=== PATIENT | male | born 1985 | race Hispanic/Latino ===

== ENCOUNTER 2018-02-27 03:20 | Emergency (ER) | payer OTHER, SELFPAY ==
[2018-02-27] MEDS ORDERED: ASPIRIN 81 MG CHEWABLE TABLET ONE (03:37)
[2018-02-27] MEDS ORDERED: NA CHLORIDE 0.9% 1,000 ML ONE (03:37)
[2018-02-27 03:48] LABS: Absolute Lymphocytes (CBC) 0.8 K/uL (0.7-4.9); Absolute Monocytes 0.3 K/uL (0.1-1.3); Absolute Neutrophil 9.2 K/uL (1.8-8.0); Basophils % 0.2 % (0-1.3); Hematocrit 46.5 % (39.6-49.0); Lymphocytes % 7.7 % (15.3-44.8); MPV 7.8 fL (7.6-11.3); Monocytes % 3.2 % (3.3-12.3); RBC Red Blood Cell Count 4.89 M/uL (4.33-5.43)
[2018-02-27 03:54] LABS: Protime INR 1.08
[2018-02-27 04:04] LABS: Albumin 4.4 g/dL (3.4-5.0); Bilirubin Direct 0.2 mg/dL (0-0.2); Bilirubin Total 0.4 mg/dL (0.2-1.0); CKMB Creatine Kinase MB 1.5 ng/mL (0.3-3.6); Magnesium 2.3 mg/dL (1.8-2.4); Potassium 4.5 mmol/L (3.5-5.1); Protein, Total 8.2 g/dL (6.4-8.2)
[2018-02-27] MEDS ORDERED: METOPROLOL XL 50 MG TAB PO ONE (05:29)
[2018-02-27 05:44] LABS: Barbiturates NEGATIVE (NEGATIVE); Benzodiazepines NEGATIVE (NEGATIVE); Cocaine POSITIVE (NEGATIVE); METHAMPHETAM NEGATIVE (NEGATIVE); Methadone NEGATIVE (NEGATIVE); Opiates NEGATIVE (NEGATIVE); Phencyclidine NEGATIVE (NEGATIVE); THC Cannibis NEGATIVE (NEGATIVE)
[2018-02-27 05:55] LABS: CKMB Creatine Kinase MB 1.5 ng/mL (0.3-3.6)
--- NOTE | 2018-02-27 06:02 | EDPHYS ---
Physician Documentation [facility] Name: Mathew Hartley Age: 33 yrs Sex: Male : 1985 Arrival Date: 02/27/2018 Time: 03:22 Bed 5 Private MD: ED Physician Chris Fraser HPI: 02/27 04:00 This 33 yrs old Male presents to ER via Ambulatory with complaints of Chest aide Pain. 04:00 The patient or guardian reports chest pain that is located primarily in the substernal aide area, anterior chest wall, left. The pain radiates to right arm and left arm. Associated signs and symptoms: The patient has no apparent associated signs or symptoms. The chest pain is described as aching, dull. Modifying factors: The symptoms are alleviated by nothing. the symptoms are aggravated by nothing. Severity of pain: At its worst the pain was mild in the emergency department the pain is unchanged. Historical: - Allergies: 03:28 No Known Allergies; tl2 - Home Meds: 03:28 None [Active]; tl2 - PMHx: 03:28 None; tl2 - PSHx: 03:28 herniated disk removed; tl2 - Immunization history:: Adult Immunizations up to date. - Social history:: Smoking status: Patient/guardian denies using tobacco. - Ebola Screening: : No symptoms or risks identified at this time. - Family history:: not pertinent. ROS: 04:00 Constitutional: Negative for fever, chills, and weight loss, Eyes: Negative for injury, aide pain, redness, and discharge, ENT: Negative for injury, pain, and discharge, Neck: Negative for injury, pain, and swelling, Respiratory: Negative for shortness of breath, cough, wheezing, and pleuritic chest pain, Abdomen/GI: Negative for abdominal pain, nausea, vomiting, diarrhea, and constipation, Back: Negative for injury and pain, : Negative for injury, bleeding, discharge, and swelling, MS/Extremity: Negative for injury and deformity, Skin: Negative for injury, rash, and discoloration, Neuro: Negative for headache, weakness, numbness, tingling, and seizure, Psych: Negative for depression, anxiety, suicide ideation, homicidal ideation, and hallucinations, Allergy/Immunology: Negative for hives, rash, and allergies, Endocrine: Negative for neck swelling, polydipsia, polyuria, polyphagia, and marked weight changes, Hematologic/Lymphatic: Negative for swollen nodes, abnormal bleeding, and unusual bruising. 04:00 Cardiovascular: Positive for chest pain, of the anterior aspect of left upper chest. Exam: 04:00 Constitutional: This is a well developed, well nourished patient who is awake, alert, aide and in no acute distress. Head/Face: Normocephalic, atraumatic. Eyes: Pupils equal round and reactive to light, extra-ocular motions intact. Lids and lashes normal. Conjunctiva and sclera are non-icteric and not injected. Cornea within normal limits. Periorbital areas with no swelling, redness, or edema. ENT: Nares patent. No nasal discharge, no septal abnormalities noted. Tympanic membranes are normal and external auditory canals are clear. Oropharynx with no redness, swelling, or masses, exudates, or evidence of obstruction, uvula midline. Mucous membranes moist. Neck: Trachea midline, no thyromegaly or masses palpated, and no cervical lymphadenopathy. Supple, full range of motion without nuchal rigidity, or vertebral point tenderness. No Meningismus. Cardiovascular: Regular rate and rhythm with a normal S1 and S2. No gallops, murmurs, or rubs. Normal PMI, no JVD. No pulse deficits. Respiratory: Lungs have equal breath sounds bilaterally, clear to auscultation and percussion. No rales, rhonchi or wheezes noted. No increased work of breathing, no retractions or nasal flaring. Abdomen/GI: Soft, non-tender, with normal bowel sounds. No distension or tympany. No guarding or rebound. No evidence of tenderness throughout. Back: No spinal tenderness. No costovertebral tenderness. Full range of motion. Male : Normal genitalia with no discharge or lesions. Skin: Warm, dry with normal turgor. Normal color with no rashes, no lesions, and no evidence of cellulitis. MS/ Extremity: Pulses equal, no cyanosis. Neurovascular intact. Full, normal range of motion. Neuro: Awake and alert, GCS 15, oriented to person, place, time, and situation. Cranial nerves II-XII grossly intact. Motor strength 5/5 in all extremities. Sensory grossly intact. Cerebellar exam normal. Normal gait. Psych: Awake, alert, with orientation to person, place and time. Behavior, mood, and affect are within normal limits. 04:00 Chest/axilla: Inspection: normal, Palpation: tenderness, that is mild, of the left clavicle and anterior aspect of left upper chest, Axilla: are normal, Lymph nodes: lymphadenopathy is not appreciated. 04:07 Musculoskeletal/extremity: DVT Exam: No signs of deep vein thrombosis. no pain, no aide swelling, no tenderness, negative Homans' sign noted on exam, no appreciated bluish discoloration, no erythema, no increased warmth. 05:25 Musculoskeletal/extremity: Exam is negative for Extremities: all appear grossly normal, aide with no appreciated pain with palpation, ROM: intact in all extremities, full active range of motion, full passive range of motion, Circulation is intact in all extremities. Pulses: Perfusion: the patient is Sensation intact. Compartment Syndrome exam of affected extremity: is normal. Weight bearing: can bear weight with assistance only. Vital Signs: 03:28 BP 155 / 94; Pulse 118; Resp 22; Temp 97.9(O); Pulse Ox 100% on R/A; Weight 83.91 kg; tl2 Height 6 ft. 1 in. (185.42 cm); Pain 6/10; 04:45 BP 143 / 87; Pulse 87; Resp 18; Pulse Ox 99% on R/A; tl2 05:58 BP 138 / 78; Pulse 91; Resp 18; Pulse Ox 99% on R/A; tl2 06:12 BP 132 / 77; Pulse 82; Resp 16; Temp 98; Pulse Ox 99% on R/A; Pain 0/10; tl1 03:28 Body Mass Index 24.41 (83.91 kg, 185.42 cm) tl2 MDM: 03:28 Patient medically screened. [facility] 04:00 Data reviewed: vital signs, nurses notes, lab test result(s), EKG, radiologic studies, [facility] plain films. 02/27 03:27 Order name: Basic Metabolic Panel; Complete Time: 04:14 [facility] 02/27 03:27 Order name: CBC with Diff; Complete Time: 04:14 [facility] 02/27 03:27 Order name: Ckmb; Complete Time: 04:14 [facility] 02/27 03:27 Order name: CPK; Complete Time: 04:14 [facility] 02/27 03:27 Order name: LFT's; Complete Time: 04:14 [facility] 02/27 03:27 Order name: Magnesium; Complete Time: 04:14 aide 02/27 03:27 Order name: NT PRO-BNP; Complete Time: 04:14 aide 02/27 03:27 Order name: PT-INR; Complete Time: 04:14 aide 02/27 03:27 Order name: Ptt, Activated; Complete Time: 04:14 aide 02/27 03:27 Order name: Troponin (emerg Dept Use Only); Complete Time: 04:14 aide 02/27 03:27 Order name: Lipase; Complete Time: 04:14 aide 02/27 03:27 Order name: UDS; Complete Time: 06:01 aide 02/27 03:38 Order name: TSH; Complete Time: 05:20 aide 02/27 03:59 Order name: D-Dimer; Complete Time: 05:20 aide 02/27 03:27 Order name: XRAY Chest (1 view) 02/27 03:27 Order name: EKG; Complete Time: 03:27 [facility] 02/27 03:27 Order name: Cardiac monitoring; Complete Time: 03:31 aide 02/27 03:27 Order name: EKG - Nurse/Tech; Complete Time: 03:31 aide 02/27 03:27 Order name: IV Saline Lock; Complete Time: 03:32 [facility] 02/27 03:27 Order name: Labs collected and sent; Complete Time: 03:32 aide 02/27 03:27 Order name: O2 Per Protocol; Complete Time: 03:32 aide 02/27 03:27 Order name: O2 Sat Monitoring; Complete Time: 03:32 [facility] 02/27 03:27 Order name: Urine Dipstick-Ancillary (obtain specimen); Complete Time: 05:04 aide 02/27 05:22 Order name: Ckmb; Complete Time: 06:01 aide 02/27 05:22 Order name: Creatine Phosphokinase; Complete Time: 06:01 aide 02/27 05:22 Order name: Troponin (emerg Dept Use Only); Complete Time: 06:01 aide 02/27 05:22 Order name: Repeat Cardiac Enzymes at: 525am; Complete Time: 05:26 aide Administered Medications: 03:38 Drug: NS 0.9% 1000 ml Route: IV; Rate: 125 ml/hr; Site: left antecubital; tl2 06:14 Follow up: IV Status: Completed infusion tl1 03:38 Drug: Aspirin Chewable Tablet 324 mg Route: PO; tl2 05:14 Follow up: Response: No adverse reaction; No change in condition tl1 04:02 Drug: NS 0.9% 1000 ml Route: IV; Rate: 1 bolus; Site: left antecubital; bb 05:14 Follow up: IV Status: Completed infusion tl1 05:27 Drug: ToPROL XL (metoprolol SUCCINATE XL) 50 mg Route: PO; tl1 06:11 Follow up: Response: No adverse reaction; Marked relief of symptoms tl1 Disposition: 02/27/18 06:01 Discharged to Home. Impression: Other chest pain - wall, Anxiety disorder, unspecified, Cocaine abuse. - Condition is Stable. - Discharge Instructions: Panic Attacks, Chest Wall Pain, Stimulant Use Disorder-Cocaine, Panic Attacks, [id number]-ct-[id number], Aspirin and Your Heart. - Prescriptions for Motrin IB 200 mg Oral Tablet - take 2 tablet by ORAL route every 6 hours As needed as needed with food; 20 tablet. - Medication Reconciliation Form, Thank You Letter, Antibiotic Education, Prescription Opioid Use form. - Follow up: Private Physician; When: 2 - 3 days; Reason: Recheck today's complaints, Continuance of care, Re-evaluation by your physician. Follow up: Vernon Tanner; When: 2 - 3 days; Reason: Recheck today's complaints, Re-evaluation by your physician. - Problem is new. - Symptoms have improved. Signatures: Dispatcher [employer] EDChris Henning MD MD cha Ballard, Brenda RN RN Enma Nunez RN RN tl1 Mikala Hampton RN RN tl2 Corrections: (The following items were deleted from the chart) 06:19 06:01 02/27/2018 06:01 Discharged to Home. Impression: Other chest pain - wall; Anxiety tl1 disorder, unspecified; Cocaine abuse. Condition is Stable. Discharge Instructions: Panic Attacks, Chest Wall Pain, Panic Attacks, Uqqn-[id number], Aspirin and Your Heart. Prescriptions for Toprol XL 25 mg Oral Tablet - take 1 tablet by ORAL route once daily; 20 tablet, Motrin IB 200 mg Oral Tablet - take 2 tablet by ORAL route every 6 hours As needed as needed with food; 20 tablet. and Forms are Medication Reconciliation Form, Thank You Letter, Antibiotic Education, Prescription Opioid Use. Follow up: Private Physician; When: 2 - 3 days; Reason: Recheck today's complaints, Continuance of care, Re-evaluation by your physician. Follow up: Vernon Tanner; When: 2 - 3 days; Reason: Recheck today's complaints, Re-evaluation by your physician. Problem is new. Symptoms have improved. aide
--- NOTE | 2018-02-27 06:02 | ER ---
Nurse's Notes [facility] Name: Mathew Hartley Age: 33 yrs Sex: Male : 1985 Arrival Date: 02/27/2018 Time: 03:22 Bed 5 Private MD: Diagnosis: Other chest pain-wall;Anxiety disorder, unspecified;Cocaine abuse Presentation: 02/27 03:27 Presenting complaint: Patient states: Woke up about 1 hour ago with left sided chest tl2 pain, states arms sometimes feel numb and had a little nausea. Denies shortness of breath or sweating. Pain does not radiate. Transition of care: patient was not received from another setting of care. Onset of symptoms was February 27, 2018 at 02:30. Risk Assessment: Do you want to hurt yourself or someone else? Patient reports no desire to harm self or others. Initial Sepsis Screen: Does the patient meet any 2 criteria? No. Patient's initial sepsis screen is negative. Does the patient have a suspected source of infection? No. Patient's initial sepsis screen is negative. Care prior to arrival: None. 03:27 Method Of Arrival: Ambulatory tl2 03:27 Acuity: JASWANT 3 tl2 Triage Assessment: 03:28 General: Appears in no apparent distress. uncomfortable, Behavior is cooperative, tl2 appropriate for age, anxious. Pain: Complains of pain in chest Pain does not radiate. Pain currently is 6 out of 10 on a pain scale. Quality of pain is described as pressure, Pain began 1 hour ago. Neuro: Level of Consciousness is awake, alert, obeys commands, Oriented to person, place, time, situation. Cardiovascular: Reports nausea, Denies diaphoresis, shortness of breath, Patient's skin is warm and dry. Rhythm is sinus tachycardia Chest pain is described as mild, quality is pressure, is located in left anterior began 1 hour prior to arrival. Respiratory: Airway is patent Respiratory effort is even, unlabored, Respiratory pattern is regular, symmetrical. GI: Reports nausea. : No signs and/or symptoms were reported regarding the genitourinary system. Derm: Skin is pink, warm \T\ dry. Historical: - Allergies: 03:28 No Known Allergies; tl2 - Home Meds: 03:28 None [Active]; tl2 - PMHx: 03:28 None; tl2 - PSHx: 03:28 herniated disk removed; tl2 - Immunization history:: Adult Immunizations up to date. - Social history:: Smoking status: Patient/guardian denies using tobacco. - Ebola Screening: : No symptoms or risks identified at this time. - Family history:: not pertinent. Screenin:31 Abuse screen: Denies threats or abuse. Nutritional screening: No deficits noted. tl2 Tuberculosis screening: No symptoms or risk factors identified. Fall Risk None identified. Assessment: 03:28 General: see triage assessment. tl2 04:51 Reassessment: Patient appears in no apparent distress at this time. Patient and/or tl2 family updated on plan of care and expected duration. Pain level reassessed. Patient is alert, oriented x 3, equal unlabored respirations, skin warm/dry/pink. 05:59 Reassessment: Patient appears in no apparent distress at this time. Patient and/or tl2 family updated on plan of care and expected duration. Pain level reassessed. Patient is alert, oriented x 3, equal unlabored respirations, skin warm/dry/pink. Patient states feeling better. 06:12 Reassessment: Patient and/or family updated on plan of care and expected duration. Pain tl1 level reassessed. Patient is alert, oriented x 3, equal unlabored respirations, skin warm/dry/pink. Patient denies pain at this time. Patient states feeling better. Patient states symptoms have improved. Pain: Denies pain. Vital Signs: 03:28 BP 155 / 94; Pulse 118; Resp 22; Temp 97.9(O); Pulse Ox 100% on R/A; Weight 83.91 kg; tl2 Height 6 ft. 1 in. (185.42 cm); Pain 6/10; 04:45 BP 143 / 87; Pulse 87; Resp 18; Pulse Ox 99% on R/A; tl2 05:58 BP 138 / 78; Pulse 91; Resp 18; Pulse Ox 99% on R/A; tl2 06:12 BP 132 / 77; Pulse 82; Resp 16; Temp 98; Pulse Ox 99% on R/A; Pain 0/10; tl1 03:28 Body Mass Index 24.41 (83.91 kg, 185.42 cm) tl2 ED Course: 03:23 Patient arrived in ED. bb 03:23 Chris Fraser MD is Attending Physician. aide 03:27 Mikala Hampton RN is Primary Nurse. tl2 03:28 Triage completed. tl2 03:28 Arm band placed on right wrist. tl2 03:31 Patient has correct armband on for positive identification. Placed in gown. Bed in low tl2 position. Call light in reach. Side rails up X 1. Adult w/ patient. control inspector on. Pulse ox on. NIBP on. 03:31 Patient maintains SpO2 saturation greater than 95% on room air. tl2 03:38 Inserted saline lock: 20 gauge in left antecubital area, using aseptic technique. Blood tl2 collected. placed by AMISH Diaz. 04:56 XRAY Chest (1 view) In Process Unspecified. EDMS 05:03 Urine collected: clean catch specimen, clear. cb2 06:01 Vernon Tanner MD is Referral Physician. aide 06:13 No provider procedures requiring assistance completed. IV discontinued, intact, tl1 bleeding controlled, No redness/swelling at site. Pressure dressing applied. Administered Medications: 03:38 Drug: NS 0.9% 1000 ml Route: IV; Rate: 125 ml/hr; Site: left antecubital; tl2 06:14 Follow up: IV Status: Completed infusion tl1 03:38 Drug: Aspirin Chewable Tablet 324 mg Route: PO; tl2 05:14 Follow up: Response: No adverse reaction; No change in condition tl1 04:02 Drug: NS 0.9% 1000 ml Route: IV; Rate: 1 bolus; Site: left antecubital; bb 05:14 Follow up: IV Status: Completed infusion tl1 05:27 Drug: ToPROL XL (metoprolol SUCCINATE XL) 50 mg Route: PO; tl1 06:11 Follow up: Response: No adverse reaction; Marked relief of symptoms tl1 Outcome: 06:01 Discharge ordered by . aide 06:13 Discharged to home ambulatory, with family. tl1 06:13 Condition: improved 06:13 Discharge instructions given to patient, family, Instructed on discharge instructions, follow up and referral plans. medication usage, Demonstrated understanding of instructions, follow-up care, medications, Prescriptions given X 1. 06:19 Patient left the ED. tl1 Signatures: Dispatcher [employer] EDDC Chris Fraser MD MD cha Ballard, Brenda, RN RN Tom Nunezya, RN RN tl1 Mikala Hampton, RN RN tl2 Nitish Valenzuela cb2
--- NOTE | 2018-02-27 06:45 | EKG ---
Test Date: 2018-02-27 Test Time: 03:26:36 [employer] Attendant: LIZETH MEASUREMENT RESULTS: Intervals: Rate: 120 ME: 138 QRSD: 98 QT: 328 QTc: 463 [place]: P: 80 ME: 138 QRS: 82 T: 62 INTERPRETIVE STATEMENTS: Sinus tachycardia Biatrial enlargement Possible Right ventricular hypertrophy Left ventricular hypertrophy Abnormal ECG No previous ECG available for comparison Electronically Signed On 02-27-18 06:45:00 CDT by Dex Orona
--- NOTE | 2018-02-27 09:28 | RAD REPORT ---
EXAM DESCRIPTION: Stanislaw Single View02/27/2018 8:47 am CLINICAL HISTORY: Chest pain COMPARISON: none FINDINGS: The lungs appear clear of acute infiltrate. The heart is normal size IMPRESSION: No acute abnormalities displayed
== END 2018-02-27 06:19 | disposition home or self-care (01) ==
LOC: ER 03:20
DX: F41.9 Anxiety disorder, unspecified (principal); F14.10 Cocaine abuse, uncomplicated
CPT/HCPCS: 36415; 71045; 80048; 80076; 80307; 82550; 82553; 83690; 83735; 83880; 84443; 84484; 85025; 85379; 85610; 85730; 93005; 96360; 96361; 99285; J7030

== ENCOUNTER 2022-07-17 13:25 | Inpatient (IN) | payer SELFPAY ==
--- OUTSIDE RECORDS SUMMARY | 2022-07-17 13:29 | XMS REPORT | Continuity of Care Document ---
:1985 Author Organization [facility] t Address [address] Harry [address] [place] [id number] Care Team Providers Name Role Phone CHELA LYLES Attending Clinician Unavailable LAB90 Attending Clinician Unavailable Jaime FANG, Chela Cooper Attending Clinician [phone] Payers Payer Name Policy Type Policy Number Effective Date Expiration Date [facility] 2 [id number] 2022 00:00:00 Problems This patient has no known problems. Allergies, Adverse Reactions, Alerts This patient has no known allergies or adverse reactions. Medications This patient has no known medications. Procedures This patient has no known procedures. Encounters Start End Encounter Admission Attending Care Care Encounter Source Date/Time Date/Time Type Type Clinicians Facility Department ID 2022-02-22 2022-02-22 Outpatient HECTOR LYLES [id number] [place] 13:30:00 13:30:00 CHELA Mendezol d 2022-02-21 2022-02-21 Outpatient LAB90 HECTOR YOUNG [id number] [place] 08:10:00 08:10:00 Seybol d 2022-01-25 2022-01-25 Outpatient LAB90 HECTOR YOUNG [id number] [place] 14:45:00 14:45:00 Seybol d 2022-01-25 2022-01-25 Office Jaime Catalino [id number] [place] 14:00:00 14:30:00 Visit Chela Roe [id number] Se franci Cooper [id number] Results This patient has no known results.
[2022-07-17] MEDS ORDERED: ONDANSETRON 4 MG/2 ML VIAL ONE (14:00)
[2022-07-17] MEDS ORDERED: MORPHINE 4 MG/ML SYR ONE (14:00)
[2022-07-17] MEDS ORDERED: FAMOTIDINE 20 MG/2 ML VIAL IV ONE (14:01)
[2022-07-17] MEDS ORDERED: NA CHLORIDE 0.9% 1,000 ML ONE ×2 (14:01→19:13)
[2022-07-17 14:22] LABS: Absolute Lymphocytes (CBC) 1.3 K/uL (0.7-4.9); Hematocrit 46.1 % (39.6-49.0); Lymphocytes % 7.1 % (15.3-44.8); MCV 92.1 fL (80-100); MPV 7.8 fL (7.6-11.3); RBC Red Blood Cell Count 5.01 M/uL (4.33-5.43)
[2022-07-17 14:39] LABS: Albumin 4.2 g/dL (3.4-5.0); Bilirubin Total 1.1 mg/dL (0.2-1.0); Potassium 3.3 mmol/L (3.5-5.1); Protein, Total 8.3 g/dL (6.4-8.2)
[2022-07-17] MEDS ORDERED: PIPERACIL/TAZO 3.375 GM VIAL IV ONE (14:54)
[2022-07-17] MEDS ORDERED: NA CHLORIDE 0.9% 100 ML IV ONE (14:54)
--- NOTE | 2022-07-17 15:04 | RAD REPORT ---
EXAM DESCRIPTION: CT - Abdomen Pelvis W Contrast - 07/17/2022 2:51 pm CLINICAL HISTORY: Abdominal pain COMPARISON: none. TECHNIQUE: Computed axial tomography of the abdomen pelvis was obtained. 100 cc Isovue-300 was admin istered intravenously. Oral contrast was not requested which limits evaluation of bowel and appendix All CT scans are performed using dose optimization technique as appropriate and may include automated exposure control or mA/KV adjustment according to patient size. FINDINGS: Fatty liver Spleen, pancreas, adrenal and kidneys appear unremarkable. There is no evidence of diverticulitis. The appendix is dilated and fluid-filled. It contains several stones. Stranding within the adjacent f at with ill-defined fluid. No abscess seen. No free air. The appendix extends laterally from the cecu m. The tip abuts the right psoas muscle. IMPRESSION: Suppurative appendicitis
--- NOTE | 2022-07-17 15:24 | ER ---
Nurse's Notes [facility] Name: Mathew Hartley Age: 37 yrs Sex: Male : 1985 Arrival Date: 07/17/2022 Time: 13:28 Bed 11 Private MD: Diagnosis: Acute appendicitis with localized peritonitis Presentation: 07/17 13:38 Chief complaint: Patient states: RLQ pain that began yesterday, pt states "I thought it aa5 was constipation but I still haven't had a bowel movement after laxatives and the pain hasn't gone away". Pt reports nausea/vomiting. Coronavirus screen: nausea. Ebola Screen: Patient denies travel to an Ebola-affected area in the 21 days before illness onset. Initial Sepsis Screen: Does the patient meet any 2 criteria? HR > 90 bpm. Does the patient have a suspected source of infection? No. Patient's initial sepsis screen is negative. Risk Assessment: Do you want to hurt yourself or someone else? Patient reports no desire to harm self or others. Onset of symptoms was June 2022. 13:38 Method Of Arrival: Ambulatory aa5 13:38 Acuity: JASWANT 3 aa5 Historical: - Allergies: 13:38 No Known Allergies; aa5 - PMHx: 13:38 None; aa5 - PSHx: 13:38 cervical spine discectomy; aa5 - Immunization history:: Adult Immunizations unknown. - Social history:: Smoking status: Patient denies any tobacco usage or history of. Screenin:17 [facility] ED Fall Risk Assessment (Adult) History of falling in the last 3 months, iw including since admission No falls in past 3 months (0 pts). Abuse screen: Denies threats or abuse. Denies injuries from another. Nutritional screening: No deficits noted. Tuberculosis screening: No symptoms or risk factors identified. Assessment: 14:07 Reassessment: Patient is alert, oriented x 3, equal unlabored respirations, skin aa5 warm/dry/pink. Awaiting CT scan . 15:17 Reassessment: Patient appears in no apparent distress at this time. Patient is alert, iw oriented x 3, equal unlabored respirations, skin warm/dry/pink. pt states pain is back, morphine helped for a little while but now is back. Vital Signs: 13:38 BP 125 / 75; Pulse 107; Resp 20 S; Temp 99.3(O); Pulse Ox 99% on R/A; Weight 90.72 kg aa5 (R); Height 6 ft. 1 in. (185.42 cm) (R); 15:16 BP 152 / 87; Pulse 89; Resp 16; Pulse Ox 100% on R/A; iw 13:38 Body Mass Index 26.39 (90.72 kg, 185.42 cm) aa5 ED Course: 13:28 Patient arrived in ED. rg4 13:38 Arm band placed on. aa5 13:40 Triage completed. aa5 13:42 Rhina Gibson FNP-C is PHCP. snw 13:42 David Francis MD is Attending Physician. snw 14:09 CBC with Diff Sent. rs5 14:09 CMP Sent. rs5 14:09 Lipase Sent. rs5 14:31 Ana Coffey, AMISH is Primary Nurse. iw 14:53 CT Abd/Pelvis - IV Contrast Only In Process Unspecified. EDMS 15:17 Patient has correct armband on for positive identification. iw 15:23 Ge Cherry MD is Hospitalizing Provider. snw 15:58 SARS RAPID Sent. iw Administered Medications: 14:07 Drug: NS 0.9% 1000 ml Route: IV; Rate: 1 bolus; Site: left forearm; aa5 14:07 Drug: Pepcid (famotidine) 20 mg Route: IVP; Site: left forearm; aa5 14:07 Drug: Zofran (Ondansetron) 4 mg Route: IVP; Site: left forearm; aa5 14:07 Drug: morphine 4 mg Route: IVP; Infused Over: 4 mins; Site: left forearm; aa5 15:15 Drug: Zosyn (piperacillin-tazobactam) 3.375 grams Route: IVPB; Infused Over: 60 mins; iw Site: left antecubital; 15:58 Follow up: IV Status: Completed infusion iw 15:49 Drug: Dilaudid (HYDROmorphone) 1 mg Route: IVP; Site: left forearm; iw Outcome: 15:23 Decision to Hospitalize by Provider. snw 16:37 Patient left the ED. iw Signatures: Dispatcher [employer] EDMS Rhina Gibson FNP-C [employer] Ana Coffey, RN RN iw Anastasiia Turcios, RN RN aa5 Renetta Philip rg4 Bishnu Reynolds rs5
--- NOTE | 2022-07-17 15:24 | EDPHYS ---
Physician Documentation [facility] Name: Mathew Hartley Age: 37 yrs Sex: Male : 1985 Arrival Date: 07/17/2022 Time: 13:28 Bed 11 Private MD: ED Physician David Francis HPI: 07/17 14:20 This 37 yrs old Male presents to ER via Ambulatory with complaints of snw Abdominal Pain, Vomiting, Constipation. 14:20 The patient presents with abdominal pain pt had upper abdominal pain and unease all day snw yesterday, thought it was constipation. Took Dulcolax and tums without relief. Pt began vomiting and vomited all night. Today with severe RLQ pain. Onset: The symptoms/episode began/occurred acutely. Associated signs and symptoms: Pertinent positives: nausea and vomiting. The symptoms are described as steady, vague. Severity of pain: At its worst the pain was moderate severe in the emergency department the pain is unchanged. The patient has not experienced similar symptoms in the past. The patient has not recently seen a physician. Historical: - Allergies: 13:38 No Known Allergies; aa5 - PMHx: 13:38 None; aa5 - PSHx: 13:38 cervical spine discectomy; aa5 - Immunization history:: Adult Immunizations unknown. - Social history:: Smoking status: Patient denies any tobacco usage or history of. ROS: 14:20 Eyes: Negative for injury, pain, redness, and discharge, ENT: Negative for injury, snw pain, and discharge, Neck: Negative for injury, pain, and swelling, Cardiovascular: Negative for chest pain, palpitations, and edema, Respiratory: Negative for shortness of breath, cough, wheezing, and pleuritic chest pain, Back: Negative for injury and pain, : Negative for injury, bleeding, discharge, and swelling, MS/Extremity: Negative for injury and deformity, Skin: Negative for injury, rash, and discoloration, Neuro: Negative for headache, weakness, numbness, tingling, and seizure. 14:20 Constitutional: Positive for body aches. 14:20 Abdomen/GI: Positive for abdominal pain, nausea and vomiting, constipation, of the right lower quadrant. Exam: 14:19 Constitutional: This is a well developed, well nourished patient who is awake, alert, snw and in no acute distress. Head/Face: Normocephalic, atraumatic. Eyes: Pupils equal round and reactive to light, extra-ocular motions intact. Lids and lashes normal. Conjunctiva and sclera are non-icteric and not injected. Cornea within normal limits. Periorbital areas with no swelling, redness, or edema. ENT: Nares patent. No nasal discharge, no septal abnormalities noted. Tympanic membranes are normal and external auditory canals are clear. Oropharynx with no redness, swelling, or masses, exudates, or evidence of obstruction, uvula midline. Mucous membranes moist. Neck: Trachea midline, no thyromegaly or masses palpated, and no cervical lymphadenopathy. Supple, full range of motion without nuchal rigidity, or vertebral point tenderness. No Meningismus. Chest/axilla: Normal chest wall appearance and motion. Nontender with no deformity. No lesions are appreciated. Cardiovascular: Tachycardic rate and rhythm with a normal S1 and S2. No gallops, murmurs, or rubs. Normal PMI, no JVD. No pulse deficits. Respiratory: Lungs have equal breath sounds bilaterally, clear to auscultation and percussion. No rales, rhonchi or wheezes noted. No increased work of breathing, no retractions or nasal flaring. Back: No spinal tenderness. No costovertebral tenderness. Full range of motion. 14:19 Skin: Warm, dry with normal turgor. Normal color with no rashes, no lesions, and no evidence of cellulitis. MS/ Extremity: Pulses equal, no cyanosis. Neurovascular intact. Full, normal range of motion. Neuro: Awake and alert, GCS 15, oriented to person, place, time, and situation. Cranial nerves II-XII grossly intact. Motor strength 5/5 in all extremities. Sensory grossly intact. Cerebellar exam normal. Normal gait. Psych: Awake, alert, with orientation to person, place and time. Behavior, mood, and affect are within normal limits. 14:19 Abdomen/GI: Inspection: abdomen appears normal, Bowel sounds: diminished, Palpation: severe abdominal tenderness, in the right lower quadrant, Indicators: McBurney's point is tender, Rovsing's sign is positive, Obturator sign is positive, Psoas sign is positive. Vital Signs: 13:38 BP 125 / 75; Pulse 107; Resp 20 S; Temp 99.3(O); Pulse Ox 99% on R/A; Weight 90.72 kg aa5 (R); Height 6 ft. 1 in. (185.42 cm) (R); 15:16 BP 152 / 87; Pulse 89; Resp 16; Pulse Ox 100% on R/A; iw 13:38 Body Mass Index 26.39 (90.72 kg, 185.42 cm) aa5 MDM: 13:44 Patient medically screened. snw 15:23 Data reviewed: vital signs, nurses notes. Data interpreted: Pulse oximetry: on room air snw is 100 %. Interpretation: normal. Counseling: I had a detailed discussion with the patient and/or guardian regarding: the historical points, exam findings, and any diagnostic results supporting the discharge/admit diagnosis, the presence of at least one elevated blood pressure reading (>120/80) during this emergency department visit, lab results, radiology results, the need for further work-up and treatment in the hospital. Physician consultation: Ge Cherry MD was called at 15:24, regarding admission, consult, need to evaluate the patient as soon as possible. 07/17 13:44 Order name: CBC with Diff; Complete Time: 14:29 snw 07/17 13:44 Order name: CMP; Complete Time: 14:42 snw 07/17 13:44 Order name: Lipase; Complete Time: 14:42 snw 07/17 13:44 Order name: CT Abd/Pelvis - IV Contrast Only; Complete Time: 15:16 snw 07/17 15:21 Order name: SARS RAPID; Complete Time: 16:14 iw 07/17 13:44 Order name: IV Saline Lock; Complete Time: 14:07 snw 07/17 13:44 Order name: Labs collected and sent; Complete Time: 14:07 snw 07/17 15:24 Order name: NPO; Complete Time: 15:50 snw Administered Medications: 14:07 Drug: NS 0.9% 1000 ml Route: IV; Rate: 1 bolus; Site: left forearm; aa5 14:07 Drug: Pepcid (famotidine) 20 mg Route: IVP; Site: left forearm; aa5 14:07 Drug: Zofran (Ondansetron) 4 mg Route: IVP; Site: left forearm; aa5 14:07 Drug: morphine 4 mg Route: IVP; Infused Over: 4 mins; Site: left forearm; aa5 15:15 Drug: Zosyn (piperacillin-tazobactam) 3.375 grams Route: IVPB; Infused Over: 60 mins; iw Site: left antecubital; 15:58 Follow up: IV Status: Completed infusion iw 15:49 Drug: Dilaudid (HYDROmorphone) 1 mg Route: IVP; Site: left forearm; iw Disposition: 07/18 12:31 Co-signature as Attending Physician, David Francis MD I agree with the assessment and rt plan of care. Disposition Summary: 07/17/22 15:23 Hospitalization Ordered Hospitalization Status: Inpatient Admission snw Provider: Ge Cherry Location: Telemetry/MedSurg (Inpatient) snw Condition: Stable snw Problem: new snw Symptoms: have worsened snw Bed/Room Type: Standard snw Room Assignment: snw Diagnosis - Acute appendicitis with localized peritonitis snw Forms: - Medication Reconciliation Form snw - SBAR form snw Signatures: Dispatcher [employer] EDRhina May, CARTON MAKER-C CARTON MAKER-Csnw Ana Coffey RN RN iw Anastasiia Turcios RN RN aa5 David Francis MD MD rt
[2022-07-17] MEDS ORDERED: HYDROMORPHONE HCL 1 MG/ML INJ ONE (15:29)
[2022-07-17 16:12] LABS: SARS-CoV-2 Antigen Rapid Res Negative (Negative)
[2022-07-17] MEDS: Ringers Lactate 1,000 ML IV ONE (16:57)
[2022-07-17] MEDS: BUPIVACAINE 0.5% PF 10 ML VIAL ONE ×2 (16:59→17:40)
[2022-07-17] MEDS ORDERED: SUCCINYLCHOLINE 20 MG/ML (10 ML) IV ONE (17:04)
[2022-07-17] MEDS ORDERED: MIDAZOLAM HCL 2 MG/2 ML INJ ONE (17:06)
[2022-07-17] MEDS ORDERED: ROCURONIUM 50 MG/5 ML VIAL IV ONE (17:06)
[2022-07-17] MEDS ORDERED: FENTANYL CITR 100 MCG/2 ML ONE ×2 (17:06→18:03)
[2022-07-17] MEDS ORDERED: propofoL 200 MG/20 ML VIAL IV ONE (17:06)
[2022-07-17] MEDS ORDERED: SODIUM CHLORIDE 0.9% 10ML INJ IV PRN (17:24)
--- NOTE | 2022-07-17 17:24 | P.BOP ---
Preoperative diagnosis: acute suppurative appendicitis, peritonitis Postoperative diagnosis: same, perforated appendicitis, intrabdominal adhesions Primary procedure: Laparoscopic appendectomy Secondary procedure: Laparoscopic lysis of adhesions Estimated blood loss: 30cc Specimen: manjeet Findings: perforated appendicitis with localized abscess Anesthesia: General Complications: None Drain(s): CRISTIAN drain Transferred to: Recovery Room Condition: Good
[2022-07-17] MEDS: NA CHLORIDE 0.9% 1,000 ML IV SCH (18:00)
[2022-07-17] MEDS: CEFOXITIN 1 GM in NA CHLORIDE 0.9% 50 ML IVPB SCH (18:00)
[2022-07-17] MEDS ORDERED: CEFOXITIN SODIUM 1 GM/VIAL ONE (18:09)
[2022-07-17] MEDS ORDERED: NA CHLORIDE 0.9% 50 ML IV ONE (18:12)
[2022-07-17] MEDS ORDERED: GLYCOPYRROLATE 0.2 MG/ML SYR ONE (18:17)
[2022-07-17] MEDS ORDERED: NEOSTIGMINE 1 MG/ML -5 ML ONE (18:33)
[2022-07-17] MEDS ORDERED: MEPERIDINE HCL 25 MG/ML SYR ONE (18:43)
[2022-07-17] MEDS ORDERED: KETOROLAC 30 MG/ML INJ ONE (19:12)
[2022-07-17] MEDS: HYDROMORPHONE HCL 1 MG/ML INJ ONE ×2 (19:12→19:20)
[2022-07-17] MEDS: METRONIDAZOLE 500mg IVPB 500 MG/100 ML BAG IV SCH (20:00)
[2022-07-17 20:09] VITALS: BMI 25.3
--- NOTE | 2022-07-17 21:53 | HP ---
Date of Admission: 07/17/2022 Diagnosis: Acute appendicitis. History Of Present Illness: This is a case of a 37-year-old patient having abdominal pain for the la st 2 days associated with vomiting and nausea. He was taking some Dulcolax, even taking some Tums, b ut today the pain got worse to the point that he came to the ER and when workup was done, he was foun d to have acute suppurative appendicitis based on CAT scan. Surgical consultation was obtained. Allergies: NONE. Past Medical History: None. Past Surgical History: Surgeries include cervical spine diskectomy. Social History: He does not smoke. He does not drink alcohol. Family History: Noncontributory. Review of Systems: Nausea, vomiting, and abdominal pain. Denies any dysuria, hematuria, hematochezia, or melena. Denie s any recent traveling out of the country. Denies any family member sick at home. Physical Examination: General: Patient is awake and alert. Eyes: Pupils are equal and reactive. Anicteric. Neck: Supple. Chest: Clear. Abdomen: Right lower quadrant tenderness with Rovsing sign and psoas signs positive with guarding an d rebound. Rectal: Examination deferred. Extremities: Good capillary refill. Neuro: Cranial nerves 2 through 12 grossly within normal limits. Laboratory Data: Blood work shows WBC count of 18.9 with hemoglobin of 16.2 and platelets of 300. P otassium 3.3 and creatinine is 1.17. CAT scan of the abdomen and pelvis described by Dr. Naldo david ws suppurative appendicitis. Assessment: This is a 37-year-old patient who comes to us with acute appendicitis. The benefits, al ternatives, and risks of emergent laparoscopic with possible open appendectomy were fully explained, which include, but are not limited to infection, bleeding, damage to adjacent structures, anesthesia complication, abscess, myocardial infarction, and even . He also understands this may not relie ve any symptoms and he might need more than one surgical intervention. He understood. He signed a c onsent. The OR was emergently called. RADHA/MARLEEN Voice ID: [id number]
--- NOTE | 2022-07-17 21:53 | OP ---
Date of Procedure: 07/17/2022 Surgeon: Ge Cherry MD Diagnoses: Acute suppurative appendicitis, peritonitis. Postoperative Diagnoses: Acute suppurative appendicitis, peritonitis plus perforated appendicitis wi th localized intraabdominal abscess and intraabdominal adhesions. Procedure: Laparoscopic appendectomy, laparoscopic lysis of adhesions. Estimated Blood Loss: Less than 30 cc. Specimen: Appendix. Findings: Perforated appendicitis with localized abscess in the right lower quadrant. Anesthesia: General plus local. Complications: None. Drains: CRISTIAN #10. Indications: This is the case of a 37-year-old patient who comes to us with acute abdominal pain and peritonitis with leukocytosis of 18. The patient was emergently explained the need for emergent lap aroscopic versus open appendectomy with benefits, alternatives, and risks including, but not limited to, infection, bleeding, damage to adjacent structures, anesthesia complication, OK, and even . He also understands this may not relieve symptoms. He might need more than one surgical interventio n. He understood, signed a consent. Procedure In Detail: Patient was brought to the operating room, placed in supine position. Anesthes ia was given without complication. Abdominal area was prepped and draped in usual sterile fashion. Marcaine 0.5% was injected for local anesthetic after time-out. Incision was carried down in the inf raumbilical region. Incision was carried down to fascia, which was opened under direct vision. Luna toneum was encountered, opened under direct vision. Vicryl #1 placed inside the fascia. Frederick troc ar was carefully introduced. Pneumoperitoneum was obtained. I placed 2 more trocars, 5 mm each, one of them in the suprapubic and left lower quadrant under direct visualization. We noticed in the rig ht lower quadrant that there are multiple adhesions. The patient does not have any history of surger y in the past, but they are there right at the area near the cecum. In order for us to mobilize that appendix, those adhesions have to be removed and we also noticed in advance that there is an appendi x, long, curving into the right lower quadrant coming back into the midline and the elbow of that manjeet endix shows purulent discharge and gangrenous changes. So carefully using a LigaSure, we proceeded t o remove the adhesions in the right lower quadrant. Etiology of that, once again, is unknown, and we did it without any enterotomies. Now, the cecum was mobilized and we were able to visualize the manjeet endix. Once again, we confirmed the findings of perforated appendicitis with the localized intraabdo asuncion abscess. We suctioned the area. The base of the appendix seems to be spared from this, so we transected that base of the appendix after creating a window in the mesoappendix and we transected th at with an Endo-ANDREAS 45 mm nonvascular. Then carefully we proceeded with the help of LigaSure to blackwell sect the mesoappendix sequentially up to the area of that elbow of the appendix and then the appendix was completely mobilized, making sure the ureters were protected at all time and the iliac vessels. Appendix removed with the help of the Endosac through the umbilical incision. Then profuse irrigati on of that area was done until we have the purulent discharge out and the fibrin out. The same was d one with the entire abdomen and the cul-de-sac. After that, I proceeded to leave a drain in that are a exiting through one of the trocar sites that was secured with 3-0 nylon. Once again, we checked fo r hemostasis. No bowel leak. No bleeding. At that moment, I proceeded to remove the trocars under direct vision. Before that, we checked the area of the lysis of adhesions with no bleeding. We gregoria rosa the trocars under direct vision, deflated the pneumoperitoneum, closed the fascia with a #1 Vicry l, irrigated the subcutaneous tissue, closed that with 3-0 chromic and the skin with rafita. Sponge count and instrument counts were correct. The patient tolerated the procedure well. Patient sent to Recovery in stable condition. The CRISTIAN was connected to bulb suction. Patient will remain in the h ospital with IV antibiotics. HM/MODL Voice ID: [id number] Report ID: [id number]
[2022-07-18] MEDS: METRONIDAZOLE 500mg IVPB 500 MG/100 ML BAG IV SCH ×2 (00:08→05:14)
[2022-07-18] MEDS: CEFOXITIN 1 GM in NA CHLORIDE 0.9% 50 ML IVPB SCH ×2 (00:08→05:14)
[2022-07-18] MEDS: MORPHINE 2 MG/ML SYR IV PRN ×4 (00:13→18:10)
[2022-07-18] MEDS: NA CHLORIDE 0.9% 1,000 ML IV SCH ×3 (04:00→14:00)
[2022-07-18 04:11] LABS: Absolute Lymphocytes (CBC) 1.5 K/uL (0.7-4.9); Hematocrit 41.2 % (39.6-49.0); Lymphocytes % 12.1 % (15.3-44.8); MCV 93.7 fL (80-100); MPV 8.1 fL (7.6-11.3); RBC Red Blood Cell Count 4.39 M/uL (4.33-5.43)
[2022-07-18 04:23] LABS: Potassium 3.5 mmol/L (3.5-5.1)
[2022-07-18] MEDS ORDERED: INFLUENZA VACCINE (for 6+ mo) 0.5 ML DOSE IMVAC ONE (08:00)
[2022-07-18] MEDS: PANTOPRAZOLE 40 MG INJ IVP SCH (09:23)
[2022-07-18] MEDS: HYDROCODONE/APAP 5/325 MG TAB PO PRN ×2 (14:50→22:08)
[2022-07-19] MEDS: ONDANSETRON 4 MG/2 ML VIAL IV PRN ×5 (00:10→21:59)
[2022-07-19] MEDS: MORPHINE 2 MG/ML SYR IV PRN ×2 (00:18→06:13)
[2022-07-19] MEDS: NA CHLORIDE 0.9% 1,000 ML IV SCH ×3 (03:45→21:58)
[2022-07-19] MEDS: HYDROCODONE/APAP 5/325 MG TAB PO PRN (09:06)
[2022-07-19] MEDS: PANTOPRAZOLE 40 MG INJ IVP SCH (09:06)
[2022-07-19] MEDS ORDERED: MORPHINE 4 MG/ML SYR IV PRN (10:15)
--- NOTE | 2022-07-19 11:51 | PN ---
Date of Progress Note: 07/19/2022 Diagnoses: Perforated appendicitis with intraabdominal abscess. Subjective: This is a case of a 37-year-old patient who comes to us with peritonitis, taken [facility], found to have a necrotic appendix with localized abscess. Patient underwent appendect niles. Drain was left in. Profuse irrigation was done. Now, he is here for pain control, IV antibiot ics. He is still not tolerating diet. Objective: Chest: Clear. Abdomen: Intact surgical site. CRISTIAN drain is still serosanguineous. Extremities: Good capillary refill. Plan: Continue IV antibiotics. He is on liquid diet, although he is still having nausea, so we advi sed him to be n.p.o. until he recover from this. We do not expect him to leave the hospital yet. Wi ll need IV antibiotics and we need to make sure he has some good pain control. Thus we will be adjus ting that today and also being able to use the GI tract, he has not been able to. We expect that ile us. He understood. RADHA/MARLEEN Voice ID: [id number] Report ID: [id number]
[2022-07-19] MEDS: HYDROCODONE/APAP 7.5/325 MG TAB PO PRN ×2 (12:43→17:40)
[2022-07-20] MEDS: ONDANSETRON 4 MG/2 ML VIAL IV PRN ×2 (04:16→07:59)
[2022-07-20 05:00] LABS: Absolute Lymphocytes (CBC) 1.5 K/uL (0.7-4.9); Hematocrit 40.4 % (39.6-49.0); MCV 93.5 fL (80-100); MPV 7.7 fL (7.6-11.3); RBC Red Blood Cell Count 4.32 M/uL (4.33-5.43)
[2022-07-20 05:34] LABS: Potassium 3.4 mmol/L (3.5-5.1)
[2022-07-20] MEDS: PANTOPRAZOLE 40 MG INJ IVP SCH (09:44)
[2022-07-20] MEDS: NA CHLORIDE 0.9% 1,000 ML IV SCH ×2 (09:50→17:29)
[2022-07-20] MEDS ORDERED: MEPERIDINE HCL 50 MG/ML IV PRN (10:38)
--- NOTE | 2022-07-20 12:45 | PN ---
Date of Progress Note: 07/20/2022 Diagnosis: History of perforated appendicitis with intraabdominal abscess. Subjective: The patient is doing well and still having some nausea, unable to tolerate diet, but we are not expecting him to tolerate diet any time today, probably by tomorrow, so we have him n.p.o. W e are going to start clear tomorrow since he could not tolerate clears yesterday. We changed the gualberto n medications and also the nausea medications. Other that, he is doing good. He had a bowel movemen t last night. Physical Examination: Chest: Clear. Abdomen: Soft and depressible. Intact surgical site. CRISTIAN drain serosanguineous. Extremities: Good capillary refill. Laboratory Data: Blood work reviewed. Plan: Start clears tomorrow again. He is n.p.o. at this moment. WBC count came from 18 to 9.8. We are going to continue antibiotics. We encouraged incentive spirometry and ambulation. HM/MODL Voice ID: [id number] Report ID: [id number]
[2022-07-20] MEDS ORDERED: MORPHINE 4 MG/ML SYR IV PRN (12:59)
[2022-07-20] MEDS: PROMETHAZINE INJ 25 MG/ML AMP IV PRN (16:01)
[2022-07-21] MEDS: NA CHLORIDE 0.9% 1,000 ML IV SCH ×4 (00:22→22:11)
[2022-07-21] MEDS: PROMETHAZINE INJ 25 MG/ML AMP IV PRN ×3 (01:20→22:11)
[2022-07-21] MEDS: PANTOPRAZOLE 40 MG INJ IVP SCH (09:08)
[2022-07-21 17:48] VITALS: O2SAT 96
[2022-07-22] MEDS: PANTOPRAZOLE 40 MG INJ IVP SCH (08:28)
[2022-07-22] MEDS: NA CHLORIDE 0.9% 1,000 ML IV SCH (12:05)
[2022-07-22] MEDS: HYDROCODONE/APAP 7.5/325 MG TAB PO PRN (14:08)
--- NOTE | 2022-07-22 15:42 | PN ---
Date of Progress Note: 07/22/2022 Diagnosis: History of perforated appendicitis with localized abscess. Subjective: The patient is doing better. Finally, tolerating diet, has been able to tolerate also m edications by mouth. Afebrile. Passing gas. Has bowel movement. Objective: Chest: Clear. Abdomen: Soft and depressible. Bowel sounds positive. Extremities: Good capillary refill. Laboratory Data: Blood work normalized. Plan: Will be discharged home with instructions on soft diet, CRISTIAN record q.24 hours. Continue the an tibiotics that we prescribed already. We will see him this Friday for possible removal of the CRISTIAN hyun in. RADHA/MODL Voice ID: [id number] Report ID: [id number]
[2022-07-22 16:51] VITALS: BP 140/88; TEMP 98.9
== END 2022-07-22 18:46 | disposition home or self-care (01) | DRG 340 ==
LOC: ER 13:25 → 2ND 18:14 → ER 18:14 → OR 18:25 → 2ND 18:25 → OR 18:27 → 4TH 07-18 18:02
PROVIDERS: ADMIT Surgery; ATTEND Surgery
PROC: 0DTJ4ZZ Resection of Appendix, Percutaneous Endoscopic Approach (ICD-10-PCS; principal; 2022-07-17 17:00)
DX: K35.33 Acute appendicitis with perforation, localized peritonitis, and gangrene, with abscess (principal); K59.00 Constipation, unspecified; K66.0 Peritoneal adhesions (postprocedural) (postinfection); Z20.822 Contact with and (suspected) exposure to COVID-19
CPT/HCPCS: 36415; 74177; 80048; 80053; 83690; 85025; 87811; 88304; 94010; 96365; 96375; 99283; C9113; J0330; J0694; J1170; J2175; J2250; J2270; J2405; J2543; J2550; J2704; J2710; J3010; J7030; J7120; Q9967

== ENCOUNTER → 2023-10-01 | Emergency (ER) | payer OTHER, SELFPAY ==
[~2023-10-01] MED LIST: HYDROCODONE/APAP 10/325 TAB ONE; KETOROLAC 30 MG/ML INJ ONE; METOCLOPRAMIDE 10 MG/2mL INJ ONE; MORPHINE 4 MG/ML SYR ONE; NA CHLORIDE 0.9% 1,000 ML ONE; ONDANSETRON 4 MG/2 ML VIAL ONE; PROMETHAZINE 25 MG TABLET ONE
--- OUTSIDE RECORDS SUMMARY | 2023-10-01 01:22 | XMS REPORT | Continuity of Care Document ---
Author Name Unknown Address [address] [place] [address] [address] [place] [id number] [facility] thconnect Address [address] [facility] [address] [place] [address] Care Team Providers Care Ethernet Network Architect Name Role Phone Baum_L Attending Clinician Unavailable CHELA SANDOVAL Attending Clinician Unava ilable LAB90 Attending Clinician Unavailable Chela Sandoval MD Attending Clinician [phone] Baum_L Admitting Clinician Unavailable Payers Payer Name Policy Type Policy Number Effective Date Expirati on Date Source [facility] ([facility]) [id number] [facility] 2 [id number] 2023 00:00:00 Social History Social Habit Start Date Stop Date Quantity Comments Source Sexual orientation Maira Grewal - External History of Social function 2023-06-18 00:00:00 2023-06-18 00:00:00 Paola Grewal - External Sex Ass[birth year] At 1985 00:00:00 1985 00:00:00 Paola Grewal - External Smoking Status Start Date Stop Date Source Never Smoker [facility] Medications Ordered Medication Name Filled Medication Name Start Date Stop Date Current Medication? Ordering Clinician Indication Dosage Frequency Signature (SIG) Comments Components Source Fluconazole 150 MG oral Tablet 2022-07 00:00: 00 Yes [id number] 150mg Take 1 tablet (150 mg total) by mouth once a week. Paola Grewal - Externa l tadalafil 5 mg tablet Take 1 tablet every day by oral route for 90 days. tadalafil 5 mg tablet Take 1 tablet every day by oral route for 90 days. No 1 Q1D tadalafil 5 mg tablet Take 1 tablet every day by oral route for 90 days. [facility] clomiphene citrate 50 mg tablet Take 1 tablet every other day by oral route for 30 days. clomiphene citrate 50 mg tablet Take 1 tablet every other day by oral route for 30 days. No 1 Q2D clomiphene citrate 50 mg tablet Take 1 tablet every other day by oral route for 30 days. [facility] Vital Signs Vital Name Observation Time Observation Value Comments S jared Body Weight 2023-09-29 00:00:00 200 [lb_av] Lenka [facility] Height 2023-09-29 00:00:00 73 [in_i] R[facility] BP Systolic 2023-09-29 00:00:00 138 mm[Hg] Tasneem ton [facility] BMI (Body Mass Index) 2023-09-29 00:00:00 26.4 kg/m2 [facility] BP Diastolic 2023-09-29 00:00:00 82 mm[Hg] Lenka [facility] Systolic blood pressure 2023-06-18 15:37:00 129 mm[Hg] Paola Seybo ld - External Diastolic blood pressure 2023-06-18 15:37:00 91 mm[Hg] Paola Seybo ld - External Heart rate 2023-06-18 15:37:00 78 /min Kelse y Seybold - External Body temperature 2023-06-18 15:37:00 36.17 [place] Paola Seybold - External Respiratory rate 2023-06-18 15:37:00 15 /min Paola Seybold - External Body height 2023-06-18 15:37:00 185.4 cm Blanche ey Seybold - External Body weight 2023-06-18 15:37:00 91.627 kg Blanche ey Seybold - External BMI 2023-06-18 15:37:00 26.65 kg/m2 Blanche ey Seybold - External Oxygen saturation in Arterial blood by Pulse oximetry 2023-06-18 15:37:00 99 /min Paola Mendezo ld - External Procedures Procedure Date / Time Performed Performing Clinicia n Source GI- Appendectomy 2022-07-17 00:00:00 [facility] Cervical [facility] Plan of Care Planned Activity Planned Date Details Comments Source Future Appointment 2023-11-28 10:30:00 Thuy jaramillo, [id number] [facility] [address]; , [place] [address] [facility] En[facility] Start Date/Time End Date/Time Encounter Type Admission Type Attending Clinicians Care Facility Care Department Encounter ID Source 2023-09-29 00:00:00 2023-09-29 00:00:00 Wu Chavarria MD: [id number] [facility] [address], [place] [address] , Ph. U [facility] [place] - [place] [id number] [facility] 2023-09-25 00:00:00 2023-09-25 00:00:00 Outpatient Baum_L [facility] [id number] [facility] 2023-09-15 00:00:00 2023-09-15 00:00:00 Outpatient Baum_L [facility] [id number] [facility] 2023-08-26 00:00:00 2023-08-26 00:00:00 Outpatient CHELA SANDOVAL [id number] [facility] 2023-06-18 09:30:00 2023-06-18 09:30:00 Outpatient CHELA SANDOVAL [id number] [facility] 2022-02-22 13:30:00 2022-02-22 13:30:00 Outpatient CHELA SANDOVAL [id number] [facility] 2022-02-21 08:10:00 2022-02-21 08:10:00 Outpatient LABMerari YOUNG [id number] [facility] 2022-01-25 14:45:00 2022-01-25 14:45:00 Outpatient LAB90 PAOLA YOUNG [id number] [facility] 2022-01-25 14:00:00 2022-01-25 14:30:00 Office Visit Chela Sandoval [place] [id number] Paola Grewal
[2023-10-01 02:12] LABS: Absolute Basophils 0.1 K/uL (0-0.5); Absolute Eosinophils 0.1 K/uL (0-0.5); Absolute Lymphocytes (CBC) 3.5 K/uL (0.7-4.9); Basophils % 0.7 % (0-1.3); Eosinophils % 1.1 % (0-4.4); Hematocrit 43.8 % (39.6-49.0); Hemoglobin 15.5 g/dL (13.6-17.9); Lymphocytes % 44.6 % (15.3-44.8); MCV 92.6 fL (80-100); MPV 7.8 fL (7.6-11.3); Platelets 290 thou/uL (152-406); RBC Red Blood Cell Count 4.73 M/uL (4.33-5.43)
[2023-10-01 02:26] LABS: Anion Gap 10.2 mEq/L (5.0-15.0); Potassium 3.2 mEq/L (3.5-5.1)
[2023-10-01 02:27] LABS: Albumin 3.8 g/dL (3.4-5.0); Bilirubin Total 0.7 mg/dL (0.2-1.0); Globulin 3.9 g/dL (2.3-3.5); Protein, Total 7.7 g/dL (6.4-8.2)
[2023-10-01 05:55] LABS: Specific Gravity > 1.030 (1.005-1.030); Urine Bilirubin NEGATIVE (Negative); Urine Blood Negative (Negative); Urine Clarity Clear (Clear); Urine Color Colorless (Yellow); Urine Glucose NEGATIVE (Negative); Urine Protein NEGATIVE (Negative); Urine Urobilinogen Normal (Normal); Urine pH 6.5 (5.0-7.0)
--- NOTE | 2023-10-01 06:19 | ER ---
Nurse's Notes [facility] Name: Mathew Hartley Age: 38 yrs Sex: Male : 1985 Arrival Date: 10/01/2023 Time: 01:20 Bed 7 Private MD: Diagnosis: Other cholelithiasis without obstruction;Cholelithiasis without acute cholecystitis, Biliary colic Presentation: 09/30 01:36 Chief complaint: Patient states: sudden onset upper mid abdominal radiating to lg3 umbilical area at 2300 with N/V. pain 10/10. Coronavirus screen: Client denies travel out of the [place] in the last 14 days. At this time, the client does not indicate any symptoms associated with coronavirus-19. Ebola Screen: No symptoms or risks identified at this time. Initial Sepsis Screen: Does the patient meet any 2 criteria? No. Patient's initial sepsis screen is negative. Does the patient have a suspected source of infection? No. Patient's initial sepsis screen is negative. Risk Assessment: Do you want to hurt yourself or someone else? Patient reports no desire to harm self or others. Onset of symptoms was September 30, 2023. 01:36 Method Of Arrival: Ambulatory lg3 01:36 Acuity: JASWANT 3 lg3 Triage Assessment: 02:00 General: Appears in no apparent distress. uncomfortable, Behavior is calm, cooperative. lg3 Pain: Complains of pain in epigastric area, right upper quadrant and left upper quadrant Pain radiates to umbilical area Pain currently is 10 out of 10 on a pain scale. EENT: No deficits noted. No signs and/or symptoms were reported regarding the EENT system. Neuro: No deficits noted. [place] Agitation-Sedation Scale (RASS): 0 - Alert and Calm Level of Consciousness is awake, alert, obeys commands, Oriented to person, place, time, situation. Cardiovascular: No deficits noted. Denies chest pain, shortness of breath, Capillary refill < 3 seconds Clubbing of nail beds is absent JVD is absent Patient's skin is warm and dry. Respiratory: No deficits noted. Airway is patent Respiratory effort is even, unlabored, Respiratory pattern is regular, symmetrical, Breath sounds are clear bilaterally. GI: Abdomen is round non-distended, Bowel sounds present X 4 quads. Abd is soft X 4 quads Abdomen is tender to palpation in right upper quadrant and left upper quadrant Reports upper abdominal pain, nausea, vomiting. : No deficits noted. No signs and/or symptoms were reported regarding the genitourinary system. Derm: No deficits noted. No signs and/or symptoms reported regarding the dermatologic system. Skin is intact, is healthy with good turgor, Skin is dry, Skin is normal, Skin temperature is warm. Musculoskeletal: No deficits noted. No signs and/or symptoms reported regarding the musculoskeletal system. Circulation, motion, and sensation intact. Range of motion: intact in all extremities. Historical: - Allergies: 02:00 No Known Allergies; lg3 - Home Meds: 02:00 None [Active]; lg3 - PMHx: 02:00 None; lg3 - PSHx: 02:00 cervical spine discectomy; Appendectomy; lg3 - Immunization history:: Adult Immunizations up to date, Client reports having NOT received the Covid vaccine. Flu vaccine is not up to date. - Social history:: Smoking status: Patient denies any tobacco usage or history of. Patient uses alcohol, occasionally. Patient/guardian denies using street drugs. - Family history:: not pertinent. Screenin:03 [facility] ED Fall Risk Assessment (Adult) History of falling in the last 3 months, lg3 including since admission No falls in past 3 months (0 pts). Abuse screen: Denies threats or abuse. Denies injuries from another. Nutritional screening: No deficits noted. Tuberculosis screening: No symptoms or risk factors identified. Assessment: 02:03 General: see triage assessment. lg3 02:45 Reassessment: Patient appears in no apparent distress at this time. No changes from lg3 previously documented assessment. Patient and/or family updated on plan of care and expected duration. Pain level reassessed. Patient states symptoms have improved. 03:53 Reassessment: Patient appears in no apparent distress at this time. No changes from jw7 previously documented assessment. Patient and/or family updated on plan of care and expected duration. Pain level reassessed. Patient is alert, oriented x 3, equal unlabored respirations, skin warm/dry/pink. 04:45 Reassessment: Patient appears in no apparent distress at this time. No changes from jw7 previously documented assessment. Patient and/or family updated on plan of care and expected duration. Pain level reassessed. Patient is alert, oriented x 3, equal unlabored respirations, skin warm/dry/pink. 05:40 Reassessment: Patient appears in no apparent distress at this time. No changes from jw7 previously documented assessment. Patient and/or family updated on plan of care and expected duration. Pain level reassessed. Patient is alert, oriented x 3, equal unlabored respirations, skin warm/dry/pink. Vital Signs: 01:36 BP 126 / 90; Pulse 62; Resp 18 S; Temp 97.9(O); Pulse Ox 100% on R/A; Weight 90.72 kg lg3 (R); Height 6 ft. 1 in. (R); Pain 10/10; 02:44 BP 133 / 88; Pulse 62; Resp 18 S; Pulse Ox 99% on R/A; lg3 03:45 BP 133 / 81; Pulse 79; Resp 17 S; Pulse Ox 98% on R/A; jw7 04:45 BP 124 / 77; Pulse 80; Resp 19; Pulse Ox 97% ; jj7 05:41 BP 118 / 76; Pulse 78; Resp 18 S; Pulse Ox 98% on R/A; jw7 06:25 BP 125 / 92; Pulse 75; Resp 18; Pulse Ox 96% ; Pain 0/10; jj7 01:36 Body Mass Index 26.39 (90.72 kg, 185.42 cm) lg3 01:36 Pain Scale: Adult lg3 06:25 Pain Scale: Adult j7 ED Course: 01:23 Patient arrived in ED. gm2 01:28 Zeb Ellis MD is Attending Physician. sp4 01:57 Augusta Vargas RN is Primary Nurse. lg3 01:59 Triage completed. lg3 02:00 Arm band placed on right wrist. lg3 02:03 Patient has correct armband on for positive identification. Placed in gown. Bed in low lg3 position. Call light in reach. Side rails up X 1. Client placed on continuous cardiac and pulse oximetry monitoring. NIBP monitoring applied. Door closed. Noise minimized. Warm blanket given. Family accompanied patient. 02:03 Inserted saline lock: 20 gauge in right antecubital area, using aseptic technique. lg3 Blood collected. Patient maintains SpO2 saturation greater than 95% on room air. 02:04 Lipase Sent. lg3 02:04 CMP Sent. lg3 02:04 CBC with Diff Sent. lg3 02:35 US Abdomen Limited In Process Unspecified. EDMS 03:41 CT Abd/Pelvis - IV Contrast Only In Process Unspecified. EDMS 06:17 Selwyn Elliott MD is Referral Physician. sp4 06:25 IV discontinued, intact, bleeding controlled, No redness/swelling at site. Pressure jj7 dressing applied. 06:25 No provider procedures requiring assistance completed. jj7 Administered Medications: 02:04 Drug: NS 0.9% IV 1000 ml IV at 1 bolus Per protocol; 1000 mL bolus Route: IV; Rate: 1 lg3 bolus; Site: right antecubital; 02:45 Follow up: IV Status: Completed infusion; IV Intake: 1000ml lg3 02:04 Drug: TORadol - Ketorolac IVP 30 mg IVP once Route: IVP; Site: right antecubital; lg3 02:45 Follow up: Response: No adverse reaction lg3 02:04 Drug: Ondansetron IVP 4 mg IVP once; over 2 minutes Route: IVP; Site: right antecubital;lg3 02:45 Follow up: Response: No adverse reaction lg3 02:04 Drug: morphine IVP or IV 4 mg IVP once over 4 mins Route: IVP; Infused Over: 4 mins; lg3 Site: right antecubital; 02:46 Follow up: Response: No adverse reaction lg3 02:04 Drug: metoCLOPramide IVP 20 mg IVP once; over 15 mins Route: IVP; Site: right lg3 antecubital; 02:45 Follow up: Response: No adverse reaction lg3 05:49 Drug: morphine IVP or IV 4 mg IVP once over 4 mins Route: IVP; Infused Over: 4 mins; jw7 Site: right antecubital; 06:29 Follow up: Response: Marked relief of symptoms jj7 06:23 Drug: Promethazine PO 25 mg PO once Route: PO; jj7 06:29 Follow up: Response: No adverse reaction jj7 06:24 Drug: [place] PO 10 mg-325 mg 1 tabs PO once Route: PO; jj7 06:29 Follow up: Response: No adverse reaction jj7 Medication: 06:25 VIS not applicable for this client. jj7 Intake: 02:45 IV: 1000ml; Total: 1000ml. lg3 Outcome: 06:18 Discharge ordered by MD. higgins 06:25 Discharged to home ambulatory, with significant other, jj7 06:25 Condition: improved 06:25 Discharge instructions given to patient, Instructed on discharge instructions, follow up and referral plans. medication usage, Demonstrated understanding of instructions, follow-up care, medications, Prescriptions given X 4, 06:35 Patient left the ED. jj7 Signatures: Dispatcher [employer] EDMS Augusta Vargas RN RN lg3 Lea Carroll, RN RN jw7 Navarro Tariq RN RN jj7 Zeb Ellis MD MD sp4 Dorie Artis 2
--- NOTE | 2023-10-01 06:19 | EDPHYS ---
Physician Documentation [facility] Name: Mathew Hartley Age: 38 yrs Sex: Male : 1985 Arrival Date: 10/01/2023 Time: 01:20 Bed 7 Private MD: ED Physician Zeb Ellis HPI: 09/30 01:29 This 38 yrs old Male presents to ER via Unassigned with complaints of sp4 Abdominal Pain, Nausea/Vomiting. 01:33 38-year-old male presents with acute onset of epigastric and right and left upper sp4 abdominal pain 1-1/2 hours ago on awakening associated with vomiting. Patient reports moderate to severe pain history of prior appendectomy no known drug allergies. Historical: - Allergies: 02:00 No Known Allergies; lg3 - Home Meds: 02:00 None [Active]; lg3 - PMHx: 02:00 None; lg3 - PSHx: 02:00 cervical spine discectomy; Appendectomy; lg3 - Immunization history:: Adult Immunizations up to date, Client reports having NOT received the Covid vaccine. Flu vaccine is not up to date. - Social history:: Smoking status: Patient denies any tobacco usage or history of. Patient uses alcohol, occasionally. Patient/guardian denies using street drugs. - Family history:: not pertinent. ROS: 06:15 Constitutional: Negative for fever, chills, and weight loss, positive upper abdominal sp4 pain and epigastric pain associated with vomiting 06:15 All other systems are negative, Exam: 06:15 Constitutional: This is a well developed, well nourished patient who is awake, alert, sp4 and in no acute distress. Head/Face: Normocephalic, atraumatic. Eyes: Pupils equal round and reactive to light, extra-ocular motions intact. Lids and lashes normal. Conjunctiva and sclera are not injected. Cornea within normal limits. Periorbital areas with no swelling, redness, or edema. ENT: Nares patent. No nasal discharge, no septal abnormalities noted. Tympanic membranes are normal and external auditory canals are clear. Oropharynx with no redness, swelling, or masses, exudates, or evidence of obstruction, uvula midline. Mucous membranes moist. Neck: Trachea midline, no thyromegaly or masses palpated, and no cervical lymphadenopathy. Supple, full range of motion without nuchal rigidity, or vertebral point tenderness. Chest/axilla: Normal chest wall appearance and motion. Nontender with no deformity. No lesions are appreciated. Cardiovascular: Regular rate and rhythm with a normal S1 and S2. No gallops, murmurs, or rubs. Normal PMI, no JVD. No pulse deficits. Respiratory: Lungs have equal breath sounds bilaterally, clear to auscultation and percussion. No rales, rhonchi or wheezes noted. No increased work of breathing, no retractions or nasal flaring. Abdomen/GI: Soft, with normal bowel sounds. No distension or tympany. No guarding or rebound. Upper abdominal tenderness right upper quadrant tenderness. Positive Mckee sign Back: No spinal tenderness. No costovertebral tenderness. Skin: Warm, dry with normal turgor. Normal color with no rashes, no lesions, and no evidence of cellulitis. MS/ Extremity: Pulses equal, no cyanosis. Neurovascular intact. Full, normal range of motion. Neuro: Awake and alert, GCS 15, oriented to person, place, time, and situation. Cranial nerves II-XII grossly intact. Motor strength 5/5 in all extremities. Sensory grossly intact. Psych: Awake, alert, with orientation to person, place and time. Behavior, mood, and affect are within normal limits Vital Signs: 01:36 BP 126 / 90; Pulse 62; Resp 18 S; Temp 97.9(O); Pulse Ox 100% on R/A; Weight 90.72 kg lg3 (R); Height 6 ft. 1 in. (R); Pain 10/10; 02:44 BP 133 / 88; Pulse 62; Resp 18 S; Pulse Ox 99% on R/A; lg3 03:45 BP 133 / 81; Pulse 79; Resp 17 S; Pulse Ox 98% on R/A; jw7 04:45 BP 124 / 77; Pulse 80; Resp 19; Pulse Ox 97% ; jj7 05:41 BP 118 / 76; Pulse 78; Resp 18 S; Pulse Ox 98% on R/A; jw7 06:25 BP 125 / 92; Pulse 75; Resp 18; Pulse Ox 96% ; Pain 0/10; jj7 01:36 Body Mass Index 26.39 (90.72 kg, 185.42 cm) lg3 01:36 Pain Scale: Adult lg3 06:25 Pain Scale: Adult jj7 MDM: 01:33 Patient medically screened. sp4 06:01 ED course: EXAM: CTAbdomen and Pelvis With Intravenous Contrast CLINICAL HISTORY: The sp4 patient is 38 years old and is Male; UPPER MID ABD PAIN, VOMITING TECHNIQUE: Axial computed tomography images of the abdomen and pelvis with intravenous contrast. Sagittal and coronal reformatted images were created and reviewed. This CT exam was performed using one or more of the following dose reduction techniques: automated exposure control, adjustment of the mA and/or kV according to patient size, and/or use of iterative reconstruction technique. COMPARISON: No relevant prior studies available. FINDINGS: Lung bases: Unremarkable. No mass. No consolidation. ABDOMEN: Liver: Hepatomegaly. Gallbladder and bile ducts: Unremarkable. No calcified stones. No ductal dilation. Pancreas: Unremarkable. No mass. No ductal dilation. Spleen: Unremarkable. No splenomegaly. Adrenals: Unremarkable. No mass. Kidneys and ureters: Unremarkable. No solid mass. No hydronephrosis. Stomach and bowel: Unremarkable. No obstruction. No mucosal thickening. PELVIS: Appendix: Suggestion of prior appendectomy. Bladder: Unremarkable. Reproductive: Unremarkable as visualized. ABDOMEN and PELVIS: Intraperitoneal space: Unremarkable. No free air. No significant fluid collection. Bones/joints: No acute fracture. No dislocation. Soft tissues: Unremarkable. Vasculature: Unremarkable. No abdominal aortic aneurysm. Lymph nodes: Unremarkable. No enlarged lymph nodes. IMPRESSION: Hepatomegaly. . 06:02 ED course: CLINICAL HISTORY: ABD PAIN COMPARISON: None. TECHNIQUE: US ABDOMEN LIMITED sp4 10/01/2023 1:48 AM CONSULTANT ELECTRONICS FINDINGS: The gallbladder contains several small gallstones without wall thickening or pericholecystic fluid. Common bile duct measures 4 mm. IMPRESSION: Cholelithiasis without cholecystitis. . 06:15 Differential diagnosis: Nonspecific abd pain, gastritis, cholecystitis, pancreatitis, sp4 diverticulitis, viral gastroenteritis, gastroenteritis. Data reviewed: vital signs, nurses notes, lab test result(s), radiologic studies, CT scan, ultrasound. Consideration of Admission/Observation Escalation of care including admission/observation considered. ED course: Patient has findings of hepatomegaly also cholelithiasis without signs of acute cholecystitis. Patient will be prescribed ibuprofen, ondansetron, tramadol, also will be referred to general surgeon for evaluation for cholecystectomy. . 03/06 01:29 Order name: CBC with Diff; Complete Time: 06:01 sp4 09/30 01:29 Order name: CMP; Complete Time: 06:01 sp4 09/30 01:29 Order name: Lipase; Complete Time: 06:01 sp4 09/30 01:29 Order name: Urinalysis w/ reflexes; Complete Time: 06:01 sp4 09/30 01:32 Order name: CT Abd/Pelvis - IV Contrast Only sp4 09/30 01:48 Order name: US Abdomen Limited wm 09/30 01:29 Order name: IV Saline Lock; Complete Time: 02:04 sp4 09/30 01:29 Order name: Labs collected and sent; Complete Time: 02:04 sp4 Administered Medications: 02:04 Drug: NS 0.9% IV 1000 ml IV at 1 bolus Per protocol; 1000 mL bolus Route: IV; Rate: 1 lg3 bolus; Site: right antecubital; 02:45 Follow up: IV Status: Completed infusion; IV Intake: 1000ml lg3 02:04 Drug: TORadol - Ketorolac IVP 30 mg IVP once Route: IVP; Site: right antecubital; lg3 02:45 Follow up: Response: No adverse reaction lg3 02:04 Drug: Ondansetron IVP 4 mg IVP once; over 2 minutes Route: IVP; Site: right antecubital;lg3 02:45 Follow up: Response: No adverse reaction lg3 02:04 Drug: morphine IVP or IV 4 mg IVP once over 4 mins Route: IVP; Infused Over: 4 mins; lg3 Site: right antecubital; 02:46 Follow up: Response: No adverse reaction lg3 02:04 Drug: metoCLOPramide IVP 20 mg IVP once; over 15 mins Route: IVP; Site: right lg3 antecubital; 02:45 Follow up: Response: No adverse reaction lg3 05:49 Drug: morphine IVP or IV 4 mg IVP once over 4 mins Route: IVP; Infused Over: 4 mins; jw7 Site: right antecubital; 06:29 Follow up: Response: Marked relief of symptoms jj7 06:23 Drug: Promethazine PO 25 mg PO once Route: PO; jj7 06:29 Follow up: Response: No adverse reaction jj7 06:24 Drug: [place] PO 10 mg-325 mg 1 tabs PO once Route: PO; jj7 06:29 Follow up: Response: No adverse reaction jj7 Disposition Summary: 10/01/23 06:18 Discharge Ordered Notes: Work release for 3 days Location: Home sp4 Problem: new sp4 Symptoms: have improved sp4 Condition: Stable sp4 Diagnosis - Other cholelithiasis without obstruction sp4 - Cholelithiasis without acute cholecystitis, Biliary colic sp4 Followup: sp4 - With: Selwyn Elliott MD - When: 7 - 10 days - Reason: Recheck today's complaints Discharge Instructions: - Discharge Summary Sheet sp4 - Cholelithiasis sp4 Forms: - Work release form jb4 - Patient Portal Instructions sp4 Prescriptions: - Ibuprofen 800 mg Oral Tablet - take 1 tablet ORAL route every 8 hours As needed take with food; 30 tablet; sp4 Refills: 0, Product Selection Permitted - Pepcid 20 mg Oral tablet - take 2 tablet ORAL route once daily for 10 days; 60 tablet; Refills: 0, Product sp4 Selection Permitted - Tramadol 50 mg Oral tablet - take 1 tablet ORAL route every 8 hours as needed; 20 tablet; Refills: 0, sp4 Product Selection Permitted - ondansetron 8 mg Oral Tablet,disintegrating - take 1 tablet ORAL route every 8 hours PRN nausea; 30 tablet; Refills: 0, sp4 Product Selection Permitted Signatures: Dispatcher [employer] Augusta Chun RN RN lg3 Lea Carroll RN RN jw7 Navarro Tariq RN RN jj7 Zeb Ellis MD MD sp4
[2023-10-01 06:47] VITALS: TEMP 97.9
[2023-10-01 07:10] VITALS: BP 125/92; O2SAT 96
--- NOTE | 2023-10-01 11:13 | RAD REPORT ---
EXAM DESCRIPTION: CT - Abdomen Pelvis W Contrast - 10/01/2023 6:44 am CLINICAL HISTORY: The patient is 38 years old and is Male; UPPER MID ABD PAIN, VOMITING TECHNIQUE: Axial computed tomography images of the abdomen and pelvis with intravenous contrast. S agittal and coronal reformatted images were created and reviewed. This CT exam was performed using one or more of the following dose reduction techniques: automated exposure control, adjustment of t he mA and/or kV according to patient size, and/or use of iterative reconstruction technique. COMPARISON: No relevant prior studies available. FINDINGS: Lung bases: Unremarkable. No mass. No consolidation. ABDOMEN: Liver: Hepatomegaly. Gallbladder and bile ducts: Unremarkable. No calcified stones. No ductal dilation. Pancreas: Unremarkable. No mass. No ductal dilation. Spleen: Unremarkable. No splenomegaly. Adrenals: Unremarkable. No mass. Kidneys and ureters: Unremarkable. No solid mass. No hydronephrosis. Stomach and bowel: Unremarkable. No obstruction. No mucosal thickening. PELVIS: Appendix: Suggestion of prior appendectomy. Bladder: Unremarkable. Reproductive: Unremarkable as visualized. ABDOMEN and PELVIS: Intraperitoneal space: Unremarkable. No free air. No significant fluid collection. Bones/joints: No acute fracture. No dislocation. Soft tissues: Unremarkable. Vasculature: Unremarkable. No abdominal aortic aneurysm. Lymph nodes: Unremarkable. No enlarged lymph nodes. IMPRESSION: Hepatomegaly. Electronically signed by: Petros Jacobson MD 10/01/2023 04:27 AM COLLECT ON DELIVERY CLERK Due to temporary technical issues with the PACS/Fluency reporting system, reports are being signed by the in house radiologist without review as a courtesy to ensure prompt reporting. The interpreting r adiologist is fully responsible for the content of the report
--- NOTE | 2023-10-01 12:52 | RAD REPORT ---
EXAM DESCRIPTION: US - Abdomen Exam Limited - 10/01/2023 2:33 am CLINICAL HISTORY: ABD PAIN COMPARISON: None. TECHNIQUE: US ABDOMEN LIMITED 10/01/2023 1:48 AM PARTICLE BOARD SUPERVISOR FINDINGS: The gallbladder contains several small gallstones without wall thickening or pericholecyst ic fluid. Common bile duct measures 4 mm. IMPRESSION: Cholelithiasis without cholecystitis. Electronically signed by: Abdirashid Michael MD 10/01/2023 03:29 AM PARTICLE BOARD SUPERVISOR Due to temporary technical issues with the PACS/Fluency reporting system, reports are being signed by the in house radiologist without review as a courtesy to ensure prompt reporting. The interpreting r adiologist is fully responsible for the content of the report
== END ==
LOC: ER 01:20
DX: K80.80 Other cholelithiasis without obstruction (principal); K80.50 Calculus of bile duct without cholangitis or cholecystitis without obstruction; Z28.310 Unvaccinated for COVID-19
CPT/HCPCS: 85025; 36415; 81003; 83690; 80053; 74177; 76705; Q9967; Q0169; J2765; J2405; J7030; 96361; 96374; 96375; 99285

== ENCOUNTER 2023-10-04 07:24 | Inpatient (IN) | payer OTHER ==
--- OUTSIDE RECORDS SUMMARY | 2023-10-04 07:29 | XMS REPORT | Continuity of Care Document ---
Author Name Unknown Address [address] [facility]. [address] [id number] [facility] thconnect Address [address] [facility] [address] [place] [address] Care Team Providers Care Phys Asst Name Role Phone Baum_L Attending Clinician Unavailable CHELA SANDOVAL Attending Clinician Unava ilable LAB90 Attending Clinician Unavailable Chela Sandoval MD Attending Clinician [phone] Baum_L Admitting Clinician Unavailable Payers Payer Name Policy Type Policy Number Effective Date Expirati on Date Source [facility] [id number] [facility] [id number] 2023 00:00:00 Social History Social Habit Start Date Stop Date Quantity Comments Source Sexual orientation Maira Grewal - External History of Social function 2023-06-18 00:00:00 2023-06-18 00:00:00 Paola Grewal - External Sex Assigned At 1985 00:00:00 1985 00:00:00 Paola Grewal - External Smoking Status Start Date Stop Date Source Never Smoker [place] [facility] Medications Ordered Medication Name Filled Medication Name Start Date Stop Date Current Medication? Ordering Clinician Indication Dosage Frequency Signature (SIG) Comments Components Source Fluconazole 150 MG oral Tablet 2022-07 00:00: 00 Yes [id number] 150mg Take 1 tablet (150 mg total) [...] day by oral route for 90 days. [facility] Urolog clomiphene citrate 50 mg tablet Take 1 tablet every other day by oral route for 30 days. clomiphene citrate 50 mg tablet Take 1 tablet every other day by oral route for 30 days. No 1 Q2D clomiphene citrate 50 mg tablet Take 1 tablet every other day by oral route for 30 days. [facility] Vital Signs Vital Name Observation Time Observation Value Comments S jared Body Weight 2023-09-29 00:00:00 200 [lb_av] Lenka [facility] Height 2023-09-29 00:00:00 73 [in_i] [facility] BP Systolic 2023-09-29 00:00:00 138 mm[Hg] Tasneem [facility] U[facility] BMI (Body Mass Index) 2023-09-29 00:00:00 26.4 kg/m2 [facility] BP Diastolic 2023-09-29 00:00:00 82 mm[Hg] Lenka [facility] Systolic blood pressure 2023-06-18 15:37:00 129 mm[Hg] Paola Yu ld - External Diastolic blood pressure 2023-06-18 15:37:00 91 mm[Hg] Paola Yu ld - External Heart rate 2023-06-18 15:37:00 78 /min Bria Grewal - External Body temperature 2023-06-18 15:37:00 36.17 [place] Paola Grewal - External Respiratory rate 2023-06-18 15:37:00 15 /min Paola Grewal - External Body height 2023-06-18 15:37:00 185.4 cm Blanche Grewal - External Body weight 2023-06-18 15:37:00 91.627 kg Blanchesmith Mendezold - External BMI 2023-06-18 15:37:00 26.65 kg/m2 Blanche Grewal - External Oxygen saturation in Arterial blood by Pulse oximetry 2023-06-18 15:37:00 99 /min Paola Seybo ld - External Procedures Procedure Date / Time Performed Performing Clinicia n Source GI- Appendectomy 2022-07-17 00:00:00 [facility] Urology [facility]- Cervical Spine Surgery [facility] Urology Plan of Care Planned Activity Planned Date Details Comments Source Future Appointment 2023-11-28 10:30:00 Thuy jaramillo, [address] [facility] [address]; , [place] [address] [facility] Urology Encounters Start Date/Time End Date/Time Encounter Type Admission Type Attending [facility] Facility Care Department Encounter ID Source 2023-09-29 00:00:00 2023-09-29 00:00:00 Wu Chavarria MD: [id number] [facility] [address], [place] [address] , Ph. U [facility] Urology PA - [id number] [facility] Urology 2023-09-25 00:00:00 2023-09-25 00:00:00 Outpatient Baum_L [facility] [id number] [facility] Urology 2023-09-15 00:00:00 2023-09-15 00:00:00 Outpatient Baum_L [facility] [id number] [facility] Urology 2023-08-26 00:00:00 2023-08-26 00:00:00 Outpatient CHELA SANDOVAL [id number] [facility] 2023-06-18 09:30:00 2023-06-18 09:30:00 Outpatient CHELA SANDOVAL [id number] [facility] 2022-02-22 13:30:00 2022-02-22 13:30:00 Outpatient CHELA SANDOVAL [id number] [facility] 2022-02-21 08:10:00 2022-02-21 08:10:00 Outpatient LABMerari YOUNG [id number] Paola [facility] 2022-01-25 14:45:00 2022-01-25 14:45:00 Outpatient LAB90 PAOLA YOUNG [id number] Paola [facility] 2022-01-25 14:00:00 2022-01-25 14:30:00 Office Visit Chela Sandoval [place] [id number] Paola Grewal
[2023-10-04] MEDS ORDERED: ONDANSETRON 4 MG/2 ML VIAL ONE ×2 (07:56→08:55)
[2023-10-04] MEDS ORDERED: MORPHINE 4 MG/ML SYR ONE ×2 (07:56→08:56)
[2023-10-04] MEDS ORDERED: NA CHLORIDE 0.9% 0 ML ONE (07:56)
[2023-10-04] MEDS ORDERED: FAMOTIDINE 20 MG/2 ML VIAL IV ONE (07:56)
[2023-10-04] MEDS ORDERED: NA CHLORIDE 0.9% 1,000 ML ONE ×2 (07:57→10:01)
--- NOTE | 2023-10-04 08:26 | RAD REPORT ---
EXAM DESCRIPTION: US - Abdomen Exam Limited - 10/04/2023 8:16 am CLINICAL HISTORY: ABD PAIN COMPARISON: Abdomen Pelvis W Contrast dated 10/01/2023 FINDINGS: The gallbladder demonstrates sludge and shadowing gallstones. No pericholecystic fluid or gallbladder wall thickening. The gallbladder is distended. The common bile duct is normal measuring 4 mm. The liver demonstrates no findings of intrahepatic biliary dilatation. Fatty sparing along the gallbl adder fossa. IMPRESSION: Cholelithiasis with distended gallbladder. No gallbladder wall thickening, pericholecyst ic fluid, or sonographic Mckee sign, however, to suggest acute cholecystitis.
[2023-10-04 08:27] LABS: Absolute Lymphocytes (CBC) 1.6 K/uL (0.7-4.9); Basophils % 0.5 % (0-1.3); Eosinophils % 0.5 % (0-4.4); Lymphocytes % 18.8 % (15.3-44.8); MCV 91.8 fL (80-100); MPV 7.6 fL (7.6-11.3); Platelets 290 thou/uL (152-406)
--- NOTE | 2023-10-04 08:48 | RAD REPORT ---
EXAM DESCRIPTION: CTAbdomen Pelvis W Contrast - 10/04/2023 8:37 am CLINICAL HISTORY: Abd pain;Nausea / vomiting COMPARISON: Abdomen Pelvis W Contrast dated 10/01/2023; Abdomen Pelvis W Contrast dated 07/17/2022 TECHNIQUE: CT of the abdomen and pelvis was performed with IV contrast. All CT scans are performed using dose optimization technique as appropriate and may include automated exposure control or mA/KV adjustment according to patient size. FINDINGS: Lower chest: No acute abnormality. Liver: Hepatic steatosis. Biliary: Distended gallbladder. Stomach: No significant focal abnormality. Duodenum: No significant focal abnormality. Pancreas: No significant abnormality. Spleen: No significant abnormality. Adrenal: No suspicious lesions. Kidney/ureter: No hydronephrosis. No renal calculi. Too small to characterize and/or benign appearing renal lesions are noted. Retroperitoneum: No retroperitoneal adenopathy. Vascular: No aneurysm. Bowel: No significant focal abnormality. Peritoneum: No ascites or free air. Bladder: Grossly unremarkable. Reproductive: No adnexal masses. Bones: No acute fracture. Mild disc height loss at L5-S1. Other: n/a IMPRESSION: No acute intra-abdominal or pelvic finding. Nonspecific gallbladder distention without s ignificant pericholecystic inflammatory changes. If acute cholecystitis is suspected, could consider HIDA scan for further evaluation as the ultrasound was also nonspecific.
[2023-10-04] MEDS ORDERED: NA CHLORIDE 0.9% 100 ML ONE (08:50)
[2023-10-04] MEDS ORDERED: PIPERACIL/TAZO 3.375 GM VIAL IV ONE (08:50)
[2023-10-04 08:57] LABS: Albumin 4.2 g/dL (3.4-5.0); Albumin/Globulin Ratio 1.1 (1.1-1.8); Anion Gap 9.8 mEq/L (5.0-15.0); Bilirubin Total 0.6 mg/dL (0.2-1.0); Potassium 3.8 mEq/L (3.5-5.1); Protein, Total 8.2 g/dL (6.4-8.2)
--- NOTE | 2023-10-04 09:37 | ER ---
Nurse's Notes [facility] Name: Mathew Hartley Age: 38 yrs Sex: Male : 1985 Arrival Date: 10/04/2023 Time: 07:24 Bed 14 Private MD: Diagnosis: Cholecystitis, unspecified;Other cholelithiasis without obstruction;Abdominal tenderness;Vomiting;Cocaine abuse Presentation: 10/03 07:38 Chief complaint: Upper abdominal pain and N/V since last night. Not tolerating fluids. hb Actively vomiting in triage. Coronavirus screen: At this time, the client does not indicate any symptoms associated with coronavirus-19. Ebola Screen: No symptoms or risks identified at this time. Initial Sepsis Screen: Does the patient meet any 2 criteria? No. Patient's initial sepsis screen is negative. Does the patient have a suspected source of infection? No. Patient's initial sepsis screen is negative. Risk Assessment: Do you want to hurt yourself or someone else? Patient reports no desire to harm self or others. Onset of symptoms was October 03, 2023. 07:38 Method Of Arrival: Ambulatory hb 07:38 Acuity: JASWANT 3 hb Triage Assessment: 07:40 General: Appears in no apparent distress. Behavior is calm, cooperative. Pain: Pain hb currently is 10 out of 10 on a pain scale. Neuro: Level of Consciousness is awake, alert, obeys commands, Oriented to person, place, time, situation. Cardiovascular: Patient's skin is warm and dry. Respiratory: Respiratory effort is even, unlabored, Respiratory pattern is regular, symmetrical. GI: Reports upper abdominal pain, nausea, vomiting. Historical: - Allergies: 07:40 No Known Allergies; hb - PSHx: 07:40 Appendectomy; cervical spine discectomy; hb - Immunization history:: Adult Immunizations up to date. - Social history:: Smoking status: Patient denies any tobacco usage or history of. Screenin:17 [facility] ED Fall Risk Assessment (Adult) History of falling in the last 3 months, db including since admission No falls in past 3 months (0 pts) Confusion or Disorientation No (0 pts) Intoxicated or Sedated No (0 pts) Impaired Gait No (0 pts) Mobility Assist Device Used No (0 pt) Altered Elimination No (0 pt) Score/Fall Risk Level 0 - 2 = Low Risk Oriented to surroundings, Maintained a safe environment. Abuse screen: Denies threats or abuse. Denies injuries from another. Nutritional screening: No deficits noted. Tuberculosis screening: No symptoms or risk factors identified. Assessment: 08:00 Reassessment: Patient appears in no apparent distress at this time. Patient and/or db family updated on plan of care and expected duration. Pain level reassessed. Patient is alert, oriented x 3, equal unlabored respirations, skin warm/dry/pink. General: Appears in no apparent distress. comfortable, Behavior is calm, cooperative. Neuro: Level of Consciousness is awake, alert, obeys commands, Oriented to person, place, time, situation. Respiratory: Airway is patent Respiratory effort is even, unlabored, Respiratory pattern is regular, symmetrical. 08:02 Reassessment: GEOSPATIAL IMAGE ANALYST AT PATIENT BEDSIDE. db 08:18 Reassessment: Patient appears in no apparent distress at this time. Patient and/or db family updated on plan of care and expected duration. Pain level reassessed. Patient is alert, oriented x 3, equal unlabored respirations, skin warm/dry/pink. 08:24 Reassessment: PATIENT TO CT. db 08:42 Reassessment: PATIENT RETURNED TO ROOM FROM CT. db 08:57 Reassessment: NOTIFIED DR. GOLDBERG PATIENT STATES STILL HAS PAIN AND VOMITED IN CT. db NEW ORDER RECEIVED FOR MORPHINE 4 MG IVP AND ZOFRAN 4 MG IVP. 09:00 GI: Bowel sounds present X 4 quads. Abd is soft Abdomen is tender to palpation. db 09:14 Reassessment: Patient appears in no apparent distress at this time. Patient and/or db family updated on plan of care and expected duration. Pain level reassessed. Patient is alert, oriented x 3, equal unlabored respirations, skin warm/dry/pink. Patient states feeling better. 09:51 Reassessment: Patient appears in no apparent distress at this time. Patient and/or db family updated on plan of care and expected duration. Pain level reassessed. Patient is alert, oriented x 3, equal unlabored respirations, skin warm/dry/pink. 12:46 Reassessment: SEE [facility] FOR INPATIENT DOCUMENTATION. db Vital Signs: 07:38 BP 139 / 99; Pulse 68; Resp 16; Temp 97.6(TE); Pulse Ox 100% on R/A; Weight 90.72 kg; hb Height 6 ft. 1 in. ; Pain 10/10; 08:00 BP 112 / 68; Pulse 65; Resp 16; Pulse Ox 100% on R/A; db 08:45 BP 145 / 79; Pulse 69; Resp 18; Pulse Ox 99% on R/A; db 09:26 BP 126 / 68; Pulse 67; Resp 18; Pulse Ox 96% on R/A; db 10:00 BP 149 / 97; Pulse 68; Resp 18; Pulse Ox 100% on R/A; db 11:00 BP 148 / 88; Pulse 68; Resp 18; Pulse Ox 99% on R/A; db 12:00 BP 158 / 78; Pulse 67; Resp 18; Temp 98.2; Pulse Ox 98% ; db 07:38 Body Mass Index 26.39 (90.72 kg, 185.42 cm) hb 07:38 Pain Scale: Adult hb ED Course: 07:26 Patient arrived in ED. ra3 07:33 Chris Goldberg MD is Attending Physician. aide 07:40 Triage completed. hb 07:40 Arm band placed on. hb 07:41 Client placed on continuous cardiac and pulse oximetry monitoring. NIBP monitoring hb applied. 07:51 Dee Vogel, RN is Primary Nurse. db 08:07 Initial lab(s) drawn, by me, sent to lab. db 08:16 Inserted saline lock: 22 gauge in left antecubital area, using aseptic technique. Blood db collected. 08:17 Patient has correct armband on for positive identification. Placed in gown. Bed in low db position. Call light in reach. Side rails up X 1. Pulse ox on. NIBP on. Warm blanket given. 08:18 US Abdomen Limited In Process Unspecified. EDMS 08:38 CT Abd/Pelvis - IV Contrast Only In Process Unspecified. EDMS 09:35 Ge Cherry MD is Hospitalizing Provider. aide 10:11 Urine collected: clean catch specimen, clear. db 12:46 Awaiting bed assignment. db 12:46 Provided Education on: ADMISSION. db 12:46 No provider procedures requiring assistance completed. Patient admitted, IV remains in db place. Administered Medications: 08:07 Drug: NS 0.9% IV 1000 ml IV at 1 bolus Per protocol; 1000 mL bolus Route: IV; Rate: 1 db bolus; Site: left antecubital; 11:51 Follow up: Response: No adverse reaction; IV Status: Completed infusion; IV Intake: db 1000ml 08:09 Drug: Ondansetron IVP 4 mg IVP once; over 2 minutes Route: IVP; Site: left antecubital; db 11:52 Follow up: Response: No adverse reaction db 08:09 Drug: morphine IVP or IV 4 mg IVP once over 4 mins Route: IVP; Infused Over: 4 mins; db Site: left antecubital; :52 Follow up: Response: No adverse reaction db 08:12 Drug: Famotidine IVP 20 mg IVP once; dilute with 10 mL 0.9% NaCl; give over 2 minutes db Route: IVP; Site: left antecubital; Follow up: Response: No adverse reaction db 08:12 Drug: NS 0.9% IV 1000 ml IV at 1 bolus Per protocol; 1000 mL bolus Route: IV; Rate: 1 db bolus; Site: left antecubital; Follow up: Response: No adverse reaction; IV Status: Completed infusion; IV Intake: db 1000ml 08:57 Drug: morphine IVP or IV 4 mg IVP once over 4 mins Route: IVP; Infused Over: 4 mins; db Site: left antecubital; 52 Follow up: Response: No adverse reaction db 08:58 Drug: Ondansetron IVP 4 mg IVP once; over 2 minutes Route: IVP; Site: left antecubital; db 11:52 Follow up: Response: No adverse reaction db 08:59 Drug: Piperacillin-Tazobactam IVPB 3.375 grams IVPB once over 60 mins; (mix in NS 100 db mL) Route: IVPB; Infused Over: 60 mins; Site: left antecubital; 11:51 Follow up: Response: No adverse reaction; IV Status: Completed infusion; IV Intake: db 100ml 10:02 Drug: Promethazine IVP 12.5 mg IVP once Route: IVP; Site: left antecubital; db 11:51 Follow up: Response: No adverse reaction db 10:05 Drug: HYDROmorphone IVP 1 mg IVP once Route: IVP; Site: left antecubital; db 11:51 Follow up: Response: No adverse reaction db 10:30 Drug: NS 0.9% IV 1000 ml IV at 125 ml/hr continuous Route: IV; Rate: 125 ml/hr; Site: db left antecubital; 11:51 Follow up: IV Status: Completed infusion; Order to discontinue infusion db Medication: 08:17 VIS not applicable for this client. db Intake: 11:51 IV: 100ml; Total: 100ml. db 11:51 IV: 1000ml; Total: 1100ml. db 11:51 IV: 1000ml; Total: 2100ml. db Outcome: 09:37 Decision to Hospitalize by Provider. aide 12:46 Admitted to ER Hold. [facility] db 12:46 Condition: stable 12:46 Instructed on the need for admit, 14:24 Patient left the ED. db Signatures: Dispatcher [employer] EDChris Henning MD MD cha Baxter, Heather, RN RN Dee Peralta RN RN Darlin Toussaint ra3 Corrections: (The following items were deleted from the chart) 07:41 07:38 BP 139 / 99; Pulse 68bpm; Resp 16bpm; Pulse Ox 100% RA; Temp 97.6F Temporal; Pain hb 10/10, Adult; hb
--- NOTE | 2023-10-04 09:37 | EDPHYS ---
Physician Documentation [facility] Name: Mathew Hartley Age: 38 yrs Sex: Male : 1985 Arrival Date: 10/04/2023 Time: 07:24 Bed 14 Private MD: ED Physician Chris Fraser HPI: 10/03 07:58 This 38 yrs old Male presents to ER via Ambulatory with complaints of aide Abdominal Pain, Vomiting. 07:58 The patient presents to the emergency department with nausea, that is mild, that is aide moderate, vomiting, that is continuous. Onset: The symptoms/episode began/occurred just prior to arrival, this morning, today. Possible causes: unknown. The symptoms are aggravated by nothing. The symptoms are alleviated by nothing. Associated signs and symptoms: The patient has no apparent associated signs or symptoms. Severity of symptoms: At their worst the symptoms were moderate in the emergency department the symptoms are unchanged. The patient has experienced similar episodes in the past, a few times. Historical: - Allergies: 07:40 No Known Allergies; hb - PSHx: 07:40 Appendectomy; cervical spine discectomy; hb - Immunization history:: Adult Immunizations up to date. - Social history:: Smoking status: Patient denies any tobacco usage or history of. ROS: 08:01 Constitutional: Negative for fever, chills, and weight loss, Eyes: Negative for injury, aide pain, redness, and discharge, ENT: Negative for injury, pain, and discharge, Neck: Negative for injury, pain, and swelling, Cardiovascular: Negative for chest pain, palpitations, and edema, Respiratory: Negative for shortness of breath, cough, wheezing, and pleuritic chest pain, Back: Negative for injury and pain, : Negative for injury, bleeding, discharge, and swelling, MS/Extremity: Negative for injury and deformity, Skin: Negative for injury, rash, and discoloration, Neuro: Negative for headache, weakness, numbness, tingling, and seizure, Psych: Negative for depression, anxiety, suicide ideation, homicidal ideation, and hallucinations, Allergy/Immunology: Negative for hives, rash, and allergies, Endocrine: Negative for neck swelling, polydipsia, polyuria, polyphagia, and marked weight changes, Hematologic/Lymphatic: Negative for swollen nodes, abnormal bleeding, and unusual bruising, 08:01 Abdomen/GI: Positive for abdominal pain, nausea and vomiting, of the epigastric area, right upper quadrant and left upper quadrant, Exam: 08:01 Constitutional: This is a well developed, well nourished patient who is awake, alert, aide and in no acute distress. Head/Face: Normocephalic, atraumatic. Eyes: Pupils equal round and reactive to light, extra-ocular motions intact. Lids and lashes normal. Conjunctiva and sclera are non-icteric and not injected. Cornea within normal limits. Periorbital areas with no swelling, redness, or edema. ENT: Nares patent. No nasal discharge, no septal abnormalities noted. Tympanic membranes are normal and external auditory canals are clear. Oropharynx with no redness, swelling, or masses, exudates, or evidence of obstruction, uvula midline. Mucous membranes moist. Neck: Trachea midline, no thyromegaly or masses palpated, and no cervical lymphadenopathy. Supple, full range of motion without nuchal rigidity, or vertebral point tenderness. No Meningismus. Chest/axilla: Normal chest wall appearance and motion. Nontender with no deformity. No lesions are appreciated. Cardiovascular: Regular rate and rhythm with a normal S1 and S2. No gallops, murmurs, or rubs. Normal PMI, no JVD. No pulse deficits. Respiratory: Lungs have equal breath sounds bilaterally, clear to auscultation and percussion. No rales, rhonchi or wheezes noted. No increased work of breathing, no retractions or nasal flaring. Back: No spinal tenderness. No costovertebral tenderness. Full range of motion. Male : Normal genitalia with no discharge or lesions. Skin: Warm, dry with normal turgor. Normal color with no rashes, no lesions, and no evidence of cellulitis. MS/ Extremity: Pulses equal, no cyanosis. Neurovascular intact. Full, normal range of motion. Neuro: Awake and alert, GCS 15, oriented to person, place, time, and situation. Cranial nerves II-XII grossly intact. Motor strength 5/5 in all extremities. Sensory grossly intact. Cerebellar exam normal. Normal gait. Psych: Awake, alert, with orientation to person, place and time. Behavior, mood, and affect are within normal limits. 08:01 Abdomen/GI: Inspection: abdomen appears normal, Bowel sounds: normal, Palpation: moderate abdominal tenderness, in the epigastric area, right upper quadrant and left upper quadrant, Liver: no appreciated palpable abnormalities, Hernia: not appreciated, Vital Signs: 07:38 BP 139 / 99; Pulse 68; Resp 16; Temp 97.6(TE); Pulse Ox 100% on R/A; Weight 90.72 kg; hb Height 6 ft. 1 in. ; Pain 10/10; 08:00 BP 112 / 68; Pulse 65; Resp 16; Pulse Ox 100% on R/A; db 08:45 BP 145 / 79; Pulse 69; Resp 18; Pulse Ox 99% on R/A; db 09:26 BP 126 / 68; Pulse 67; Resp 18; Pulse Ox 96% on R/A; db 10:00 BP 149 / 97; Pulse 68; Resp 18; Pulse Ox 100% on R/A; db 11:00 BP 148 / 88; Pulse 68; Resp 18; Pulse Ox 99% on R/A; db 12:00 BP 158 / 78; Pulse 67; Resp 18; Temp 98.2; Pulse Ox 98% ; db 07:38 Body Mass Index 26.39 (90.72 kg, 185.42 cm) hb 07:38 Pain Scale: Adult hb MDM: 07:33 Patient medically screened. [facility] 08:02 Differential diagnosis: Nonspecific abd pain, gastritis, cholecystitis, pancreatitis, aide diverticulitis, viral gastroenteritis, gastroenteritis, bowel obstruction, cholecystitis, Cholelithiasis, diverticulitis, gastritis. Data reviewed: vital signs, nurses notes, lab test result(s), radiologic studies, CT scan, ultrasound. Consideration of Admission/Observation Escalation of care including admission/observation considered. I considered the following discharge prescriptions or medication management in the emergency department Medications were administered in the Emergency Department. See MAR. Test considered but Not performed: EKG: no ekg. Historians other than the Patient: Spouse/Significant Other: well informed. 10/03 07:50 Order name: CBC with Diff; Complete Time: 08:38 aide 10/03 07:50 Order name: CMP; Complete Time: 09:25 aide 10/03 07:50 Order name: Lipase; Complete Time: 09:25 aide 10/03 07:50 Order name: Urinalysis w/ reflexes; Complete Time: 10:00 [facility] 10/03 09:45 Order name: Basic Metabolic Panel EDMS 10/03 09:45 Order name: Basic Metabolic Panel EDMS 10/03 09:45 Order name: CBC with Automated Diff EDMS 10/03 09:45 Order name: CBC with Automated Diff EDMS 10/03 09:45 Order name: Lipase EDMS 10/03 09:45 Order name: Lipase EDMS 10/03 09:45 Order name: Liver (Hepatic) Function EDMS 10/03 09:45 Order name: Liver (Hepatic) Function EDMS 10/03 10:00 Order name: UDS [facility] 10/03 10:43 Order name: Urine Drug Screen; Complete Time: 13:51 EDMS 10/03 07:50 Order name: US Abdomen Limited; Complete Time: 08:38 aide 10/03 08:12 Order name: CT Abd/Pelvis - IV Contrast Only; Complete Time: 09:25 eb 10/03 07:50 Order name: IV Saline Lock; Complete Time: 08:15 aide 10/03 07:50 Order name: Labs collected and sent; Complete Time: 08:15 [facility] Administered Medications: 08:07 Drug: NS 0.9% IV 1000 ml IV at 1 bolus Per protocol; 1000 mL bolus Route: IV; Rate: 1 db bolus; Site: left antecubital; 11:51 Follow up: Response: No adverse reaction; IV Status: Completed infusion; IV Intake: db 1000ml 08:09 Drug: Ondansetron IVP 4 mg IVP once; over 2 minutes Route: IVP; Site: left antecubital; db 11:52 Follow up: Response: No adverse reaction db 08:09 Drug: morphine IVP or IV 4 mg IVP once over 4 mins Route: IVP; Infused Over: 4 mins; db Site: left antecubital; 11:52 Follow up: Response: No adverse reaction db 08:12 Drug: Famotidine IVP 20 mg IVP once; dilute with 10 mL 0.9% NaCl; give over 2 minutes db Route: IVP; Site: left antecubital; 11:52 Follow up: Response: No adverse reaction db 08:12 Drug: NS 0.9% IV 1000 ml IV at 1 bolus Per protocol; 1000 mL bolus Route: IV; Rate: 1 db bolus; Site: left antecubital; 11:51 Follow up: Response: No adverse reaction; IV Status: Completed infusion; IV Intake: db 1000ml 08:57 Drug: morphine IVP or IV 4 mg IVP once over 4 mins Route: IVP; Infused Over: 4 mins; db Site: left antecubital; 11:52 Follow up: Response: No adverse reaction db 08:58 Drug: Ondansetron IVP 4 mg IVP once; over 2 minutes Route: IVP; Site: left antecubital; db 11:52 Follow up: Response: No adverse reaction db 08:59 Drug: Piperacillin-Tazobactam IVPB 3.375 grams IVPB once over 60 mins; (mix in NS 100 db mL) Route: IVPB; Infused Over: 60 mins; Site: left antecubital; 11:51 Follow up: Response: No adverse reaction; IV Status: Completed infusion; IV Intake: db 100ml 10:02 Drug: Promethazine IVP 12.5 mg IVP once Route: IVP; Site: left antecubital; db 11:51 Follow up: Response: No adverse reaction db 10:05 Drug: HYDROmorphone IVP 1 mg IVP once Route: IVP; Site: left antecubital; db 11:51 Follow up: Response: No adverse reaction db 10:30 Drug: NS 0.9% IV 1000 ml IV at 125 ml/hr continuous Route: IV; Rate: 125 ml/hr; Site: db left antecubital; 11:51 Follow up: IV Status: Completed infusion; Order to discontinue infusion db Disposition Summary: 10/04/23 09:37 Hospitalization Ordered Notes: Hospitalization Status: Inpatient Admission aide Provider: Ge Cherry cha Condition: Stable aide Problem: new aide Symptoms: have improved aide Bed/Room Type: Standard aide Location: Telemetry/MedSurg (Inpatient)(10/04/23 13:37) eb Room Assignment: 217(10/04/23 13:37) eb Diagnosis - Cholecystitis, unspecified aide - Other cholelithiasis without obstruction aide - Abdominal tenderness aide - Vomiting aide - Cocaine abuse aide Forms: - Medication Reconciliation Form aide - SBAR form aide - Leadership Thank You Letter aide Signatures: Dispatcher [employer] Chris Lawrence MD MD cha Baxter, Heather, RN RN hb Botello, Elizabeth eb Benton, Danielle, RN RN db Corrections: (The following items were deleted from the chart) 10:17 09:37 Telemetry/MedSurg (Inpatient) aide eb 09:37 [facility] eb :37 : [facility] ER [facility] eb eb ERHOLD- eb eb
[2023-10-04 09:40] LABS: Specific Gravity > 1.030 (1.005-1.030); Urine Bilirubin NEGATIVE (Negative); Urine Blood Negative (Negative); Urine Clarity Clear (Clear); Urine Color Colorless (Yellow); Urine Glucose NEGATIVE (Negative); Urine Protein NEGATIVE (Negative); Urine Urobilinogen Normal (Normal)
[2023-10-04] MEDS ORDERED: ACETAMINOPHEN 325 MG TABLET PO PRN ×2 (09:48→14:44)
[2023-10-04] MEDS: D5 0.45 NS 1,000 ML IV SCH ×2 (10:00→15:23)
[2023-10-04] MEDS ORDERED: HYDROMORPHONE HCL 1 MG/ML INJ ONE (10:01)
[2023-10-04] MEDS ORDERED: PROMETHAZINE INJ 25 MG/ML AMP ONE (10:01)
[2023-10-04 10:42] LABS: Barbiturates NEGATIVE (NEGATIVE); Benzodiazepines NEGATIVE (NEGATIVE); Cocaine POSITIVE (NEGATIVE); METHAMPHETAM NEGATIVE (NEGATIVE); Methadone NEGATIVE (NEGATIVE); Opiates POSITIVE (NEGATIVE); Phencyclidine NEGATIVE (NEGATIVE); THC Cannibis NEGATIVE (NEGATIVE)
[2023-10-04] MEDS ORDERED: D5 0.45 NS 1,000 ML IV ONE (11:40)
[2023-10-04] MEDS: ONDANSETRON 4 MG/2 ML VIAL IV PRN ×2 (12:38→22:05)
[2023-10-04] MEDS: MORPHINE 4 MG/ML SYR IV PRN ×2 (12:39→16:40)
--- NOTE | 2023-10-04 13:26 | HP ---
Date of Admission: 10/04/2023 Diagnosis: Epigastric right upper quadrant pain. History Of Present Illness: This is the case of a 38-year-old patient who comes to us with nausea, v omiting, and epigastric pain. The patient apparently was seen in the ER a day or two before and the ultrasound showed gallstones but no evidence of cholecystitis. So, he went home. Then 24 hours late r he comes again to the ER with intractable nausea and vomiting with once again epigastric pain and a lthough the ultrasound shows gallstones and no pericholecystic fluid, we believe this patient still h as at least cholecystitis present. So the patient was admitted to the hospital, IV hydration and ant ibiotics and HIDA scan recommended by the radiologist, to confirm once again acute cholecystitis, but I believe clinically he has it. So I agree with the admission after discussing the case with the ER . He denies any dysuria, hematuria, hematochezia, melena, any recent traveling out of the country, a [place] family member sick at home. We know this patient from a few years ago when we had to do an append ectomy, so we are familiar with him and they are comfortable with me taking care of case. Allergies: NONE. Surgeries: Appendectomy, cervical spine diskectomy. Social History: He does not smoke. He does not drink alcohol. Family History: Unremarkable. Physical Examination: General: The patient is awake, alert, nauseous, vomiting. HEENT: Pupils are equal and reactive. Anicteric. Neck: Supple. Chest: Clear. Heart: S1, S2. Abdomen: Epigastric and right upper quadrant tenderness. Rectal: Deferred. Extremities: Good capillary refill. Laboratory Data: Blood work shows WBC count of 8.4 with hemoglobin of 15.9. Potassium 3.8, glucose 111. Ultrasound of the abdomen shows, per Dr. Barron, 10/04/2023, cholelithiasis with distended gallbla dder, no gallbladder wall thickening, pericholecystic fluid, or at least on the sonographic evaluatio n, Mckee sign, so HIDA scan was suggested by him after reviewing once again the CT scan. Assessment: This is 38-year-old patient with nausea, vomiting so we going to admit him to the hospital, IV hydration. We are going to start antibiotics, treat him for acute cholecystitis. I discussed with him the options of laparoscopic possible open cholecystectomy with benefits, alterna tives, and risks including, but not limited to, infection, bleeding, damage to adjacent structures, a nesthesia complication, choledocholithiasis, bile leak, pancreatitis, DE, even . He also unders tands this may not relieve the symptoms. We also discussed with him also that the radiologist sugges anirudh to have a HIDA scan present. If he clinically continues without any major deterioration, then we will try to get a HIDA scan. If he gets worse then we have to put the camera in and take a look at the gallbladder. He still has the option of laparoscopic cholecystectomy. We are going to keep him n.p.o., IV hydration, antibiotics. No hematemesis at this moment. There is some Mckee sign. If we see that the gallbladder seems to be in HIDA scan normal, then we might have to also consider GI vinny luation, although at this moment we have none available. RADHA/MARLEEN Voice ID: [id number]
[2023-10-04] MEDS ORDERED: D5 0.45 NS 1,000 ML IV SCH (15:00)
[2023-10-04] MEDS: PIPER TAZO 3.375 GM in NA CHLORIDE 0.9% 100 ML IV SCH (16:41)
[2023-10-04] MEDS ORDERED: PIPER TAZO 3.375 GM in NA CHLORIDE 0.9% 100 ML IV SCH (17:00)
[2023-10-04] MEDS ORDERED: FAMOTIDINE 20 MG/2 ML VIAL IV SCH (21:00)
[2023-10-04] MEDS: FAMOTIDINE 20 MG/2 ML VIAL IV SCH (22:02)
[2023-10-05] MEDS: MORPHINE 2 MG/ML SYR IV ONE (07:48)
[2023-10-05 11:46] LABS: Absolute Lymphocytes (CBC) 1.4 K/uL (0.7-4.9); Basophils % 0.4 % (0-1.3); Hematocrit 44.5 % (39.6-49.0); Lymphocytes % 13.2 % (15.3-44.8); MCV 91.8 fL (80-100); MPV 7.7 fL (7.6-11.3); Platelets 242 thou/uL (152-406); RBC Red Blood Cell Count 4.85 M/uL (4.33-5.43)
[2023-10-05 12:04] LABS: Albumin 3.4 g/dL (3.4-5.0); Albumin/Globulin Ratio 0.9 (1.1-1.8); Anion Gap 10.6 mEq/L (5.0-15.0); Bilirubin Direct 4.7 mg/dL (0-0.2); Bilirubin Indirect, Calculated 1.5 mg/dL (0.2-0.8); Bilirubin Total 6.2 mg/dL (0.2-1.0); Globulin 3.8 g/dL (2.3-3.5); Potassium 3.6 mEq/L (3.5-5.1); Protein, Total 7.2 g/dL (6.4-8.2)
[2023-10-05 12:27] VITALS: BMI 26.3
--- NOTE | 2023-10-05 16:34 | PN ---
Subjective: He comes yesterday with abdominal pain even though the ultrasound did not show any jian cystitis. He still has some biliary colic, nausea. He was admitted to the hospital. IV hydration, antibiotics and possible cholecystectomy. Today repeat LFTs we noticed the patient to have increased bilirubin of 6.2. He is feeling better obviously because not eating, but obviously we have an issue with possible choledocholithiasis. Other than that we have no gastrointestinal service in this [place] [facility] and there is no schedule until 18 of this month and that may be an issue. Objective: Chest: Clear. Abdomen: Soft and depressible. No guarding or rebound. No Mckee sign today. Extremities: Good capillary refill. Laboratory Data: Blood work shows a bilirubin of 6.2, lipase is only 40, ALT 498, AST 167, alkaline phosphate 93. Plan: He was due for a HIDA scan tomorrow, but since we have a chance to do we need to do an MRCP. I prefer the MRCP to be done and then if we find a stone in the common bile duct, most likely will be there, with bilirubin elevated, he may have to be transferred to a place where we can do an ERCP or if the hospital can find a way how to do the ERCP in this institution that will be great and then we will proceed with laparoscopic cholecystectomy as we explained to him previously. He agreed with the plan. We spent about half an hour explaining including diagrams. He got his computer so he underst ands the situation at this moment. RADHA/MARLEEN Voice ID: [id number] Report ID: [id number]
[2023-10-05 20:33] VITALS: BP 135/75; TEMP 97.8
[2023-10-05 21:00] VITALS: O2SAT 96
== END 2023-10-05 21:20 | disposition short-term general hospital (02) | DRG 446 ==
LOC: ER 07:24 → ERHOLD 09:38 → 2ND 14:14
PROVIDERS: ADMIT Surgery; ATTEND Surgery
DX: K80.00 Calculus of gallbladder with acute cholecystitis without obstruction (principal); F14.10 Cocaine abuse, uncomplicated; Z90.49 Acquired absence of other specified parts of digestive tract
CPT/HCPCS: 36415; 74177; 76705; 80048; 80053; 80076; 80307; 81003; 83690; 85025; 96361; 96365; 96366; 96375; 99285; J1170; J2270; J2405; J2543; J2550; J7030; J7799; Q9967